=== PATIENT | female | born 2005 | race American Indian/Alaskan Native ===

== ENCOUNTER 2024-12-05 19:06 | Emergency (ER) | payer MEDICAID, SELFPAY ==
[2024-12-05 19:24] VITALS: BP 143/94; PULSE 99; RESP 16; TEMP 36.9; O2SAT 98
--- NOTE | 2024-12-05 19:50 | XR_ITS ---
Examination: Complete OB ultrasound greater than 14 weeks Date and time of exam: December 05, 2024 at 2120 hrs. Indications: Onset vaginal bleeding today Findings: Viable intrauterine single fetus with single amniotic sac presentation breech Cardiac motion 147 BPM Placenta anterior grade 1 Umbilical cord insertion seen Amniotic fluid 6.1 cm spine maternal right Cervix 7.3 cm with fluid in the cervix and early funneling Ovaries obscured by the uterus Subchorionic hemorrhage 22 x 10 x 28 mm. Composite estimated gestational age based on BPD, head circumference, abdominal circumference, femur length is 14 weeks 5 days Estimated weight 9 7 g Survey of intracranial anatomy, spinal anatomy, abdominal anatomy, four-chamber heart performed with no abnormalities identified. Impression: Viable intrauterine gestation breech presentation Recommend short-term follow-up pelvic sonography given the patient's subchorionic hemorrhage.
--- NOTE | 2024-12-05 19:51 | PD.EDRME ---
Rapid Medical Screening Exam RME Arrival date/time: 12/05/24 19:06 19F (1st was a molar s/p D&C) at approximately 14 weeks and with no significant PMH presents to ED with 1 day of sudden vaginal bleeding that has improved. Patient has had normal US of this . Chief Complaint: Vaginal Bleeding Vital signs: Vital Signs Temperature 98.4 F 12/05/24 19:24 Pulse Rate 99 12/05/24 19:24 Respiratory Rate 16 12/05/24 19:24 Blood Pressure 143/94 H 12/05/24 19:24 Pulse Oximetry (%) 98 12/05/24 19:24 Oxygen Delivery Method Room Air 12/05/24 19:24
[2024-12-05 20:33] LABS: Collection Type, Urine Clean Catch
[2024-12-05 20:37] LABS: Basophils % (Auto) 0 % (0-2.5); Eosinophils # (Auto) 0.2 Thou/mm3 (0.0-0.5); Eosinophils % (Auto) 2 % (0-10); Hematocrit 36.7 % (36.0-46.0); Immature Granulocytes % (Auto) 0 % (0-0); Immature Granulocytes Auto 0.02 Thou/mm3 (0.00-0.00); Lymphocytes # (Auto) 2.4 Thou/mm3 (1.0-4.8); Lymphocytes % (Auto) 24 % (10-50); Mean Corpuscular HGB Conc 35.4 g/dl (31.0-37.0); Mean Corpuscular Hemoglobin 31.7 pg (25.0-35.0); Mean Corpuscular Volume 90 fL (80-100); Monocytes # (Auto) 0.7 Thou/mm3 (0.0-0.8); Monocytes % (Auto) 7 % (0-12); Neutrophils # (Auto) 6.8 Thou/mm3 (1.8-7.7); Neutrophils % (Auto) 67 % (37-80); Nucleated Red Blood Cell % 0 /100 WBC (0); Platelet Count 286 Thou/mm3 (140-440); RDW Standard Deviation 42.2 fL (36.4-46.3); White Blood Count 10.2 Thou/mm3 (3.6-11.0)
[2024-12-05 20:44] LABS: Bilirubin,Urine Negative (Negative); Blood,Urine 3+ (Negative); Clarity,Urine Clear (Clear/Hazy); Color,Urine Lt-Yellow (Lt Yel-Yel); Culture Indicated,Urine Not Indicated; Glucose, Urine Negative (Negative); Ketones,Urine Negative (Negative); Leukocyte Esterase,Urine Negative (Negative); Nitrite,Urine Negative (Negative); PH,Urine 6.5 (5.0-7.0); Protein,Urine Trace (Neg - Trace); RBC,Urine 36 /hpf (0-3); Specific Gravity,Urine 1.019 (1.001-1.035); Squamous Epithelial Cell,Urine 1 /hpf (0-5); Urobilinogen,Urine Negative mg/dL (0.0-1.0); WBC,Urine 2 /hpf (0-5)
[2024-12-05 20:50] LABS: Alanine Aminotransferase 12 U/L (10-49); Albumin, Serum 4.6 gm/dL (3.5-5.0); Albumin/Globulin Ratio 1.6 (1.2-2.2); Alkaline Phosphatase 76 U/L (46-116); Anion Gap 10 (7-16); Aspartate Amino Transferase 19 U/L (0-34); BUN/Creatinine Ratio 10 Ratio (12-20); Bilirubin,Total 0.3 mg/dL (0.3-1.2); Blood Urea Nitrogen 7 mg/dL (9-23); Calcium 10.1 mg/dL (8.3-10.6); Calcium (Corrected) 10.1 mg/dL (8.5-10.1); Chloride 103 mMol/L (98-107); Creatinine (Component) 0.7 mg/dL (0.6-1.3); Globulin 2.8 gm/dL (2.3-3.5); Glucose 84 mg/dL (74-106); Osmolality,Calculated 270 (275-295); Potassium 3.6 mMol/L (3.4-5.1); Sodium 137 mMol/L (136-145); Total Protein 7.4 gm/dL (5.7-8.2); eGFR > 60 See Note
[2024-12-05 21:32] LABS: Beta HCG,Quantitative 65063 mIU/mL (<5.0)
--- NOTE | 2024-12-05 22:39 | EDNOTE_ITS ---
<Statement entered by Jessica Barton MD - 12/06/24 18:36> As co-signing physician, I was present and available for consult prn. I concur with the plan and care as documented by the midlevel provider. ED OB Contraction Preg RMI/HPI General Chief complaint: Vaginal Bleeding Stated complaint: VAGINAL BLEEDING Time Seen by Provider: 12/05/24 21:57 Arrival date/time: 12/05/24 19:06 RME / HPI RME / HPI Narrative: 19F (1st was a molar s/p D&C) at approximately 14 weeks and with no significant PMH presents to ED with 1 day of sudden vaginal bleeding that has improved. Patient has had normal US of this . Denies any pelvic pain denies any other complaints no medications taken prior to arrival Related Data Home Medications ?Medication ?Instructions ?Recorded ?Confirmed dimenhydrinate 25 mg chewable 50 mg PO Q8H PRN Nausea 11/14/23 11/14/23 tablet (Dramamine) Previous Rx's ?Medication ?Instructions ?Recorded metoclopramide HCl 10 mg tablet 10 mg PO Q6H PRN nause a and 12/05/24 (Reglan) vomiting #20 tabs Allergies Allergy/AdvReac Type Severity Reaction Status Date / Time adhesive tape Allergy Intermediate Hives Verified 12/05/24 19:09 succinylcholine Allergy Verified 12/05/24 19:09 Review of Systems Review of Systems Narrative Review of Systems: Review of system reviewed and within normal limits except mentioned in HPI ED Exam Narrative Physical exam: VITAL SIGNS: Reviewed. GENERAL APPEARANCE: Alert and interactive, follows commands, no acute distress, HEAD AND FACE: Non-traumatic. ENT: PERRL, pink conjunctivitis, eyelid no trauma, Mucous membrane moist. NECK: Supple, nontender, no nuchal rigidity. CHEST: No tenderness, no crepitus, no paradoxical movement, no retractions. LUNGS: Clear, well ventilated, symmetric, no rales, no wheezing, no ronchi, no stridor, good breath sounds bilaterally. HEART: Regular rate, regular rhythm, no murmur, no gallops. ABDOMEN: Soft, positive bowel sounds, nondistended, no guarding, nontender, no rebound, no masses, RECTAL: Deferred. GENITAL: Deferred. NEUROLOGICAL: Gross motor function intact sensory function intact, Appropriate for age. MUSCULOSKELETAL: low back nontender, full range of motion. EXTREMITIES: Nontender, full range of motion. SKIN: Color pink, dry, no rash, no lacerations, no abrasions, no contusions. LYMPHATICS: Deferred. Course Quality Measures none Orders Category Date Time Status US OB >= 14 weeks Fetus Stat Exams 12/05/24 19:50 Completed ABO/RH Type Stat Lab 12/05/24 20:05 Completed Beta HCG,Quantitative Stat Lab 12/05/24 20:05 Completed CBC Stat Lab 12/05/24 20:05 Completed CMP [Comprehensive Metabolic Panel] Stat Lab 12/05/24 20:05 Completed Urinalysis, C/S if Indicated Stat Lab 12/05/24 20:26 Completed Vital Signs Vital signs: Vital Signs Temperature 98.4 F 12/05/24 19:24 Pulse Rate 99 12/05/24 19:24 Respiratory Rate 16 12/05/24 19:24 Blood Pressure 143/94 H 12/05/24 19:24 Pulse Oximetry (%) 98 12/05/24 19:24 Oxygen Delivery Method Room Air 12/05/24 19:24 Vaginal Bleeding [facility] Narrative [facility] Narrative: 19F (1st was a molar s/p D&C) at approximately 14 weeks and with no significant PMH presents to ED with 1 day of sudden vaginal bleeding that has improved. Patient has had normal US of this . Denies any pelvic pain denies any other complaints no medications taken prior to arrival CBC showed no abnormality noted no anemia noted. Patient's hCG today was noted to be 65,069. Patient is Rh+ urinalysis no UTI ultrasound of showed Viable intrauterine gestation breech presentation Recommend short-term follow-up pelvic sonography given the patient's subchorionic hemorrhage. Patient data External records reviewed:: None Clinical information provided by:: none Social determinants that could affect healthcare access:: none Patient has the following chronic illnesses:: None How is presenting disease/condition affected by chronic disease/condition?: no chronic disease Evaluation data The following diagnostics were reviewed and interpreted by me:: lab results and radiology exam(s) Lab and/or radiology exams considered but not ordered:: None Interpretation Summary: See results in MDM Medications / Prescriptions Medications or Prescriptions considered but not ordered:: None Medication administrations:: None Consultations Consultation(s) initiated? (list below): Yes Consultation #1 (Physician, Specialty, Details): Spoke with Dr Mackey STAFF CERTIFIED NURSE MIDWIFE on-call, discussed the case, and told me that patient is okay to be discharged home chest pelvic rest no sex for 1 week until cleared by STAFF CERTIFIED NURSE MIDWIFE. Diagnosis Vaginal Bleeding Differential Diagnosis: threatened and vaginal bleeding Most likely diagnosis given after review of the tests above:: Vaginal bleeding in early , subchorionic hemorrhage Admission Indicated Admission indicated?: not indicated Explain why admission is indicated or not indicated:: Stable Admission Request Was there a request for admission?: No Disposition Plan Disposition Plan: Discharge Discharge Attestation Discharge Attestation: The patient and all family members were given an opportunity to ask questions and understood the discharge instructions. Discharge instructions specifically effects, indications for sooner follow up or return to the emergency department, and the expected course of current diagnosis. Patient condition: Stable Discharge Plan Plan Patient Disposition: HOME (Self Care) Disposition Comment: Stable Prescriptions/Referrals Prescriptions/Med Rec: New metoclopramide HCl [Reglan] 10 mg tablet 10 mg PO Q6H PRN (Reason: nausea and vomiting) Qty: 20 0RF No Action Dramamine 25 mg Tablet,Chewable 50 mg PO Q8H PRN (Reason: Nausea) Referrals: Sonido Barajas MD [Primary Care Provider] - In 1 week Problem List Clinical Impression: Vaginal bleeding, Subchorionic hemorrhage Patient/Caregiver Discharge Instructions Education Materials: Bleeding During Early Additional Instructions: Thank you for the opportunity for serving you today. You are stable for discharged . You are advised to: Follow-up with OBGyn in 1 to 2 weeks Pelvic rest no sex for 1 week or until cleared by STAFF CERTIFIED NURSE MIDWIFE Return to ED for worsening of symptoms Increase oral fluids Take medication as prescribed Print Language: Citizen Of [place] Stand Alone Forms: Apryl Award Info., Work/School Release, Patient Portal Info Letter SANCHEZ/DERICK Supervising Physician SANCHEZ/DERICK Supervising Physician: MD Cecilia
== END 2024-12-05 23:00 | disposition home or self-care (01) ==
PROVIDERS: Physician Assistant; Emergency Provider Emergency Medicine; PCP Family Medicine
DX: O20.9 Hemorrhage in early pregnancy, unspecified (principal); Z3A.14 14 weeks gestation of pregnancy
CPT/HCPCS: 36415; 76805; 80053; 81001; 84702; 85025; 86900; 86901; 99284

== ENCOUNTER 2024-12-29 09:13 | Outpatient (AMB) | payer BC, SELFPAY ==
[2024-12-29 09:26] VITALS: BP 128/79; PULSE 100; RESP 16; TEMP 36.8; O2SAT 98; BMI 29.6
--- NOTE | 2024-12-29 09:26 | OBCLNT_ITS ---
Vital Signs 12/29/24 09:26 Height 1.7 m Height Method Stated Weight 85.842 kg Weight Measurement Method Standing Scale BMI 29.6 BP 128/79 Blood Pressure Source Automatic Cuff Blood Pressure Location Left Upper Arm Position Sitting Respiration 16 Pulse 100 Pulse Source Monitor Temp 98.2 F Temp Source Oral Pulse Oximetry (%) 98 Oxygen Delivery Method Room Air Allergies/Home Meds Allergies & Medications Allergies adhesive tape Allergy (Intermediate, Verified 12/29/24 09:28) Hives succinylcholine Allergy (Verified 12/29/24 09:28) Medication Reconciliation metoclopramide HCl 10 mg tablet (Reglan) 10 mg PO Q6H PRN nausea and vomiting #20 tabs 12/05/24 [Rx Confirmed 12/29/24] Intake Visit Data Collection New Patient or Established: Established Patient (seen at [facility] within 3 years) Reason for Visit:: New OB Seen by Clinical Staff ONLY (RN/MA): No Supervisor Pumping Required: No Do You Feel Safe at Home: Yes Authorities Contacted: N/A PCP or OBGYN visit in last 3 months: Yes Date of Last PCP or OBGYN visit: 11/04/24 Hx Now: Yes Are you currently on any form of Control: No Last menstrual period: 09/01/24 Pain Present Currently: No Pain Scale Used: Andrade-Brice/Numerical Pain scale:: 0 Smoking Status Smoking Status: Never smoker Questionnaires Covid-19 Vaccine Questionnaire Has patient been vacinated for Covid-19 Have you been vacinated for Covid-19: Yes PHQ-9 PHQ-2 Over the last 2 weeks, how often have you been bothered by any of the following problems? 1. Little interest or pleasure in doing things: not at all 2. Feeling down, depressed, or hopeless: not at all Total score: 0 PHQ-9 3. Trouble falling or staying asleep, or sleeping too much: Not at all 4. Feeling tired or having little energy: Not at all 5. Poor appetite or overeating: Not at all 6. Feeling bad about yourself - or that you are a failure or have let yourself or your family down: Not at all 7. Trouble concentrating on things, such as reading the newspaper or watching television: Not at all 8. Moving or speaking so slowly that other people could have noticed? - Or the opposite - being so fidgety or restless that you have been moving around a lot more than usual: not at all 9. Thoughts that you would be better off or of hurting yourself in some way: Not at all Total score: 0 If you checked off any problems, how difficult have these problems made it for you to do your work, take care of things at home, or get along with other people?: not difficult at all Source: Developed by Drs. Jan Mcdonnell, Joyce Salas, Luis M Beltran and colleagues, with an educational shahrzad from [employer]. Depression screen completed yes Social History Living Situation History Marital Status: Single Lives With: Family Housing: House Tobacco History Smoking Status: Never smoker Alcohol History Alcohol Intake: Never Domestic Abuse History Do You Feel Safe at Home: Yes Past Medical History Past Medical History Have you ever been diagnosed with any of the following: Neurological Problems Seizures: No Cardiology Problems Congestive Heart Failure: No Respiratory Problems Chronic Obstructive Pulmonary Disease (COPD): No Genital/Urinary Problems Renal Disease: No Reproductive Problems Previous Pregnancies: Yes Endocrine Problems Diabetes Mellitus Type 1: No Diabetes Mellitus Type 2: No Other Problems Hospitalization: No Shingles: No Blood Transfusions: No Blood Transfusion Reaction: No Anesthesia Reactions: No Cancer: No History of Present Illness HPI Narrative The patient is presenting for her first visit. She is currently 18 weeks and 1 day with an estimated due date of May 31. The patient reports she has been unable to access care previously, having been turned away from another facility that was shutting down their OB services. She had an emergency room visit on December 05 where an ultrasound showed a gestational age of 14 weeks and 5 days. The patient reports ongoing nausea and vomiting, which has been worsening rather than improving. She has been taking Zofran, but it has not been sufficiently effective in managing her symptoms. The patient also mentions experiencing some vaginal bleeding. She has a history of a previous molar , which has caused her concern about the current . To alleviate her anxiety, she has sought multiple private ultrasounds to monitor the 's progress. OB Initial Visit Menstrual History Menstrual reliability: definite Flow: normal Menstrual regularity: regular Monthly: Yes Age at menarche: 12 On control pills at conception: No Date of positive home test: 09/23/24 Associated symptoms (LMP): Reports nausea OB History : 2 Para: 0 Hx # Pregnancies: 0 Hx Total # of Abortions (Spontaneous & Elective): 1 # of Living Children: 0 Infection History & Risk Evaluation History of STDs: none HIV risk evaluation: low risk Hepatitis B risk evaluation: low risk Patient or partner has history of Genital Herpes: No Varicella/chicken pox status: immunized Genetic Screening & History Genetic Screening/Teratology Counseling - Includes patient, baby's father, or anyone in either family with: 1. Patient's age 35 years or older as of estimated date of delivery: No 2. Thalassemia (Luxembourgish, Lithuanian, Mediterranean, or Background); MCV less than 80: No 3. Neural Tube Defect (Meningomyelocele, Spina Bifida, or Anencephaly): No 4. Congenital Heart Defect: No 5. Down Syndrome: No 6. Shantanu-Sachs (Ashkenazi Methodist, Cajun, Persian [place]): No 7. Jailene Disease (Ashkenazi Methodist): No 8. Familial Dysautonomia (Ashkenazi Methodist): No 9. Sickle Cell Disease or Trait (): No 10. Hemophilia or other blood disorders: No 11. Muscular Dystrophy: No 12. Cystic Fibrosis: No 13. [place]'s Chorea: No 14. Mental Retardation/Autism: Yes 15. Other inherited genetic or chromosomal disorder: Yes 16. Maternal Metabolic Disorder (EG,TYPE 1 Diabetes, PKU): No 17. Patient or baby's father had a child with defects not listed above: No 18. Recurrent loss or a stillbirth: No 19. Medications (including supplements, vitamins, herbs or otc drugs)/illicit/recreational drugs/alcohol since last menstrual period: Yes 20. Any other: No Infection History 1. Live with someone with TB or exposed to TB: No 2. Rash or viral illness since last menstrual period: No 3. Hepatitis B,C: No Other (see comments) Source: [employer] [place] [employer] Review of Systems Gastrointestinal Gastrointestinal: Reports nausea Assessment & Plan Diagnosis / Problem List (1) Supervision of high risk , unspecified, second trimester: Status: Acute Plan: 18 weeks 1 day intrauterine with estimated due date of May 31, 2025. Patient presents for initial visit with no prior care or blood tests. Recent ER visit on December 05 with ultrasound showing 14 weeks 5 days gestation. Multiple private ultrasounds have been performed, confirming gender. Current ultrasound shows normal anatomy with heart rate of 141 bpm. Placenta is anteriorly located. No visible clots or active hemorrhage noted. Patient reports ongoing vaginal bleeding, likely residual from a resolving subchorionic hematoma. Nausea and vomiting persist, worsening despite Zofran use. - Complete labs including genetic testing - Schedule anatomy scan ([facility] ultrasound) between 20-22 weeks in [place] - Prescribe stronger antiemetic medication - Follow-up appointment in 2 weeks to review lab results - Continue monitoring vaginal bleeding, which is expected to resolve Office Procedures OB Clinic LOC & Office Proc's Nursing/Assessment Patient Status: Established Patient OB Clinic Nursing Assessment: BP Monitoring, Medication Reconciliation, Update PMH in EMR and Vital Signs OB Clinic Coordination of Care: Consent,records obtained, informed consent, Education Simp Pt/Fam, Lab and Imaging orders and Staff clarify orders Established Patient Charge Established Patient Point Assignment: 90 Established Patient Point Charge: EP Level 3 (80-115)
== END 2024-12-29 09:41 | disposition home or self-care (01) ==
LOC: HODSOBC 09:13
PROVIDERS: PCP Family Medicine; Referring Provider Family Medicine; Supervising Provider Obstetrics & Gynecology; Visit Provider Obstetrics & Gynecology
DX: O26.892 Other specified pregnancy related conditions, second trimester (principal); Z3A.18 18 weeks gestation of pregnancy; O09.92 Supervision of high risk pregnancy, unspecified, second trimester
CPT/HCPCS: 99213; G0463

== ENCOUNTER 2025-01-13 09:47 | Outpatient (AMB) | payer BC, SELFPAY ==
[2025-01-13 09:59] VITALS: BP 110/76; PULSE 95; RESP 18; TEMP 36.4; O2SAT 97; BMI 30.2
--- NOTE | 2025-01-13 09:59 | AMB.OBVISIT ---
Vital Signs 01/13/25 09:59 Height 1.7 m Height Method Stated Weight 87.203 kg Weight Measurement Method Standing Scale BMI 30.2 BP 110/76 Blood Pressure Source Automatic Cuff Blood Pressure Location Left Upper Arm Position Sitting Respiration 18 Pulse 95 Pulse Source Monitor Temp 97.6 F Temp Source Oral Pulse Oximetry (%) 97 Oxygen Delivery Method Room Air Allergies/Home Meds Allergies & Medications Allergies adhesive tape Allergy (Intermediate, Verified 02/10/25 10:21) Hives succinylcholine Allergy (Verified 02/10/25 10:21) Medication Reconciliation doxylamine 10 mg-pyridoxine (vit B6) 10 mg tablet,delayed release (Diclegis) 1 tab PO BID 30 days #60 tabs 02/10/25 [Rx] ondansetron 4 mg disintegrating tablet 4 mg PO Q6H PRN nausea and vomiting 30 days #60 tabs 02/10/25 [Rx] Intake Visit Data Collection New Patient or Established: Established Patient (seen at [facility] within 3 years) Reason for Visit:: CARE Seen by Clinical Staff ONLY (RN/MA): No Do You Feel Safe at Home: Yes Authorities Contacted: N/A PCP or OBGYN visit in last 3 months: Yes Date of Last PCP or OBGYN visit: 01/29/25 Hx Now: Yes Are you currently on any form of Control: No Last menstrual period: 08/22/24 Pain Present Currently: No Pain Scale Used: Andrade-Brice/Numerical Pain scale:: 0 Smoking Status Smoking Status: Never smoker Questionnaires Covid-19 Vaccine Questionnaire Has patient been vacinated for Covid-19 Have you been vacinated for Covid-19: No PHQ-9 PHQ-2 Over the last 2 weeks, how often have you been bothered by any of the following problems? 1. Little interest or pleasure in doing things: not at all 2. Feeling down, depressed, or hopeless: not at all Total score: 0 PHQ-9 3. Trouble falling or staying asleep, or sleeping too much: Not at all 4. Feeling tired or having little energy: Not at all 5. Poor appetite or overeating: Not at all 6. Feeling bad about yourself - or that you are a failure or have let yourself or your family down: Not at all 7. Trouble concentrating on things, such as reading the newspaper or watching television: Not at all 8. Moving or speaking so slowly that other people could have noticed? - Or the opposite - being so fidgety or restless that you have been moving around a lot more than usual: not at all 9. Thoughts that you would be better off or of hurting yourself in some way: Not at all Total score: 0 Source: Developed by Drs. Jan Mcdonnell, Joyce Salas, Luis M Beltran and colleagues, with an educational shahrzad from [email or web address]. Depression screen completed yes Social History Living Situation History Lives With: Family Housing: House Tobacco History Smoking Status: Never smoker Second Hand Smoke Exposure: No Alcohol History Alcohol Intake: Never Domestic Abuse History Do You Feel Safe at Home: Yes Past Medical History Past Medical History Have you ever been diagnosed with any of the following: Neurological Problems Cerebrovascular Accident (CVA): No Transient Ischemic Attacks (TIA): No Dementia: No Alzheimer's Disease: No Parkinson's Disease: No Brain Tumor: No Meningitis: No Seizures: No Cardiology Problems Myocardial Infarction: No Cardiac Arrhythmia: No Atrial Fibrillation: No Angina: No Heart Murmur: No Coronary Artery Disease: No Atherosclerotic Heart Disease: No Peripheral Vascular Disease: No Hypercholesterolemia: No Aneurysm: No Congestive Heart Failure: No Respiratory Problems Chronic Obstructive Pulmonary Disease (COPD): No Asthma: No Bronchitis: No Emphysema: No Pneumonia: No Pulmonary Fibrosis: No Tuberculosis: No Pulmonary Embolism: No Pulmonary Edema: No Hx Cough: No Cough: No Wheezing: No Chest Deformities: No Smoking: No Smoking Cessation Counseling: No Smoking Exposure: No Tobacco Use: No Clubbing: No Stomache/Intestinal Problems Liver Cancer: No Hepatitis: No Cirrhosis: No Pancreatic Cancer: No Pancreatitis: No Celiac Disease: No Gall Bladder Disease: No Gastrointestinal Bleed: No Esophageal Varices: No Perez's Esophagus: No Colitis: No Genital/Urinary Problems Chronic Kidney Disease: No Renal Disease: No Kidney Stones: No Dialysis: No Reproductive Problems Breast Cancer: No Endometriosis: No Fibroids: No Genital Herpes: No Gonorrhea: No Pelvic Inflammatory Disease: No Polycystic Ovarian Syndrome: No Previous Pregnancies: Yes Syphilis: No Musculoskeletal Problems Muscular Dystrophy: No Myasthenia Gravis: No Marfan's Syndrome: No Bone Cancer: No Arthritis: No Rheumatoid Arthritis: No Osteoporosis: No Degenerative Disk Disease: No Gout: No Scoliosis: No Carpal Tunnel Syndrome: No Fibromyalgia: No Fractures: No Degenerative Joint Disease: No Osteomyelitis: No Poliovirus: No Head,Eye,Nose,Throat Problems Cataracts: No Glaucoma: No Blind: No Retinal Detachment: No Macular Degeneration: No Chronic Ear Infections: No Deafness: No Eye Prosthesis: No Endocrine Problems Diabetes Mellitus Type 1: No Diabetes Mellitus Type 2: No [place]umberland's Syndrome: No Hudson's Disease: No Hyperthyroidism: No Hypothyroidism: No Thyroid Cancer: No Parathyroid Disease: No Pituitary Disease: No Systemic Lupus Erythematosus: No Syndrome of Inappropriate Antidiuretic Hormone: No Adrenal Disease: No Graves' Disease: No Blood Problems Anemia: No Leukemia: No Hemophilia: No Thalassemia: No Sickle Cell Disease: No Clotting Problems: No Psychologic Problems Schizophrenia: No Recreational Drug Use: No Bipolar Disorder: No Depression: No Anxiety: No Behavior Problems: No Self-Mutilation: No Attention Deficit Disorder: No Attention Deficit Hyperactivity Disorder: No Depression: No Post Traumatic Stress Disorder: No Eating Disorder: No Other Problems Hospitalization: No Autoimmune Disease: No Down Syndrome: No Autism: No Developmental Delay: No Cosmetic Surgery: No Shingles: No Blood Transfusions: No Blood Transfusion Reaction: No Anesthesia Reactions: No Cancer: No Cervical Cancer: No Lung Cancer: No Ovarian Cancer: No Surgical History Angioplasty: No Appendectomy: No Bariatric Surgery: No Breast Surgery: No Cancer Surgery: No Carotid Endarterectomy: No Cholecystectomy: No Colectomy: No Colostomy: No Coronary Artery Bypass Graft: No Valve Replacement: No Herniorrhaphy: No History of Present Illness HPI Narrative Patient presents for care in the first trimester. She is currently 22 weeks and 2 days estimated gestation, with an estimated due date of 05-31-2025. The patient was seen 2 weeks ago with a history of threatened miscarriage. She reports no more bleeding since then and no other issues. The patient describes feeling pressure, particularly on one side, which is more noticeable at night. She denies feeling movements, only pressure sensations. The patient reports experiencing nausea and vomiting, primarily occurring at night. She states that most of the time, everything she eats is coming up, though she is able to keep certain foods down. Tuna is noted as one of the foods she can tolerate. No CTX/LOF/VB, reports good FM+ Review of Systems Review of Systems Systems Reviewed: All systems reviewed, normal except as documented Visit ALEJANDRINA Calculator Estimated Delivery Date Method Current WG Current Estimate 05/31/25 Ultrasound #1 24w 5d Initial Weight: Not Recorded Date <del>?</del> EGA Weight Edema CTX Effacement BP Fundal ht Pres Dilation Effacement Station Visit Note Alb Glu FHR Mov 02/10/25 <del>?</del> 24w 2d 89.584 kg 113/75 No CTX/LOF/VB. Reports good FM. No SUN/VS, Epig/RUQ pain. Primary concern: severe left-sided sciatica, worsened by prolonged standing. No relief with stretching or heat. Has not yet felt movement. FHR: 146?147 bpm. Assessment & Plan: 24w with left-sided sciatica. heart rate reassuring. Resubmit referral for ultrasound at [facility] 24w glucose test for GDM screening Offer workplace accommodation note: 10-min break every 2 hrs Option to call out during severe episodes Follow up in 4 weeks Reviewed labor signs and care counseling Exam General Limitations: no limitations General Appearance: alert, in no apparent distress, comfortable, cooperative, healthy appearing, well developed and well groomed Head Head exam: atraumatic, normocephalic and normal inspection Neck Neck exam: Present normal inspection, full ROM and trachea midline Chest Chest inspection: Present normal inspection and symmetric chest wall rise Abdominal Abdominal exam: Present soft and normal bowel sounds Extremities Extremities exam: Present normal inspection and full ROM Back Back exam: Present normal inspection and full ROM Psych Psychiatric exam: Present normal affect and normal mood Skin Skin exam: Present warm, dry, intact and normal color Assessment & Plan Diagnosis / Problem List (1) Hyperemesis affecting , antepartum: Status: Acute Plan: Patient reports frequent vomiting, primarily at night. She is able to keep some foods down, particularly tuna, but reports most foods coming up. This suggests ongoing hyperemesis gravidarum. - Advised that canned tuna labeled as tested for mercury or mercury-free is safe for consumption during - Consider anti-emetic medication (2) Supervision of high risk , unspecified, second trimester: Status: Acute Plan: , 22 weeks 2 days gestation Patient is at 22 weeks and 2 days estimated gestation with an ALEJANDRINA of 05-31-2025. Recent history of threatened miscarriage 2 weeks ago. labs from 01-01-2025 show: hepatitis B-negative, hepatitis C-negative, RPR non-reactive, rubella immune, blood group O positive with negative antibody screen, HIV negative, gonorrhea and chlamydia negative. NIPT is negative. heart rate 138 bpm, which is within normal range. Patient reports feeling pressure, particularly at night, likely due to round ligament stretch. No current bleeding or other issues reported. - Continue care - Await call for 20-24 week ultrasound referral - Advised to avoid sleeping flat on back; recommended rotating shoulder, using pillow, or sleeping on side - Follow-up appointment scheduled in 4 weeks Plan Educated the patient on labor signs, including regular contractions, lower back pain, and changes in vaginal discharge. Advised avoiding heavy lifting and getting adequate rest. Instructed to contact the office immediately if any signs occur. Discussed the importance of a balanced diet rich in folic acid, iron, and calcium, and provided a list of recommended and to-avoid foods. Emphasized avoiding high-sugar foods to reduce gestational diabetes risk. Encouraged hydration and frequent, small meals for energy. Office Procedures OB Clinic LOC & Office Proc's Nursing/Assessment Patient Status: Established Patient OB Clinic Nursing Assessment: Medication Reconciliation, Update PMH in EMR and Vital Signs OB Clinic Coordination of Care: Complex Care and Chronic Disease 1-5, Consent,records obtained, informed consent, Education Simp Pt/Fam, Results/Orders obtained and Staff clarify orders Special Needs: Heart tones Established Patient Charge Established Patient Point Assignment: 120 Established Patient Point Charge: EP Level 4 (120-155) Bedside Ultrasounds US Transabdominal <14 weeks at bedside: Yes
== END 2025-01-13 10:14 | disposition home or self-care (01) ==
LOC: HODSOBC 09:47
PROVIDERS: PCP Obstetrics & Gynecology; Referring Provider Obstetrics & Gynecology; Supervising Provider Obstetrics & Gynecology; Visit Provider Obstetrics & Gynecology
DX: O09.892 Supervision of other high risk pregnancies, second trimester (principal); O21.0 Mild hyperemesis gravidarum; Z3A.22 22 weeks gestation of pregnancy; Z88.8 Allergy status to other drugs, medicaments and biological substances; Z91.048 Other nonmedicinal substance allergy status
CPT/HCPCS: 76801; 99214; G0463

== ENCOUNTER 2025-02-10 10:03 | Outpatient (AMB) | payer BC, MEDICAID, SELFPAY ==
--- NOTE | 2025-02-10 10:19 | AMB.OBVISIT ---
Vital Signs 02/10/25 10:20 Height 1.7 m Height Method Stated Weight 89.584 kg Weight Measurement Method Standing Scale BMI 30.9 BP 113/75 Blood Pressure Source Automatic Cuff Blood Pressure Location Left Upper Arm Position Sitting Respiration 16 Pulse 80 Pulse Source Monitor Temp 97.5 F Temp Source Oral Pulse Oximetry (%) 98 Oxygen Delivery Method Room Air Allergies/Home Meds Allergies & Medications Allergies adhesive tape Allergy (Intermediate, Verified 02/10/25 10:21) Hives succinylcholine Allergy (Verified 02/10/25 10:21) Medication Reconciliation doxylamine 10 mg-pyridoxine (vit B6) 10 mg tablet,delayed release (Diclegis) 1 tab PO BID 30 days #60 tabs 02/10/25 [Rx] ondansetron 4 mg disintegrating tablet 4 mg PO Q6H PRN nausea and vomiting 30 days #60 tabs 02/10/25 [Rx] Intake Visit Data Collection New Patient or Established: Established Patient (seen at [facility] within 3 years) Reason for Visit:: CARE Seen by Clinical Staff ONLY (RN/MA): No Head Of Digital Required: No Do You Feel Safe at Home: Yes Authorities Contacted: N/A PCP or OBGYN visit in last 3 months: Yes Hx Now: Yes Are you currently on any form of Control: No Pain Present Currently: Yes Pain Location: Back (LOWER BACK) Pain Scale Used: Andrade-Brice/Numerical Pain scale:: 4 Smoking Status Smoking Status: Never smoker Questionnaires Covid-19 Vaccine Questionnaire Has patient been vacinated for Covid-19 Have you been vacinated for Covid-19: Yes PHQ-9 PHQ-2 Over the last 2 weeks, how often have you been bothered by any of the following problems? 1. Little interest or pleasure in doing things: not at all 2. Feeling down, depressed, or hopeless: not at all Total score: 0 PHQ-9 3. Trouble falling or staying asleep, or sleeping too much: Not at all 4. Feeling tired or having little energy: Not at all 5. Poor appetite or overeating: Not at all 6. Feeling bad about yourself - or that you are a failure or have let yourself or your family down: Not at all 7. Trouble concentrating on things, such as reading the newspaper or watching television: Not at all 8. Moving or speaking so slowly that other people could have noticed? - Or the opposite - being so fidgety or restless that you have been moving around a lot more than usual: not at all 9. Thoughts that you would be better off or of hurting yourself in some way: Not at all Total score: 0 Source: Developed by Drs. Jan Mcdonnell, Joyce Salas, Luis M Beltran and colleagues, with an educational shahrzad from [employer]. Depression screen completed yes Social History Living Situation History Lives With: Family Housing: House Tobacco History Smoking Status: Never smoker Second Hand Smoke Exposure: No Alcohol History Alcohol Intake: Never Domestic Abuse History Do You Feel Safe at Home: Yes Past Medical History Past Medical History Have you ever been diagnosed with any of the following: Neurological Problems Cerebrovascular Accident (CVA): No Transient Ischemic Attacks (TIA): No Dementia: No Alzheimer's Disease: No Parkinson's Disease: No Brain Tumor: No Meningitis: No Seizures: No Cardiology Problems Myocardial Infarction: No Cardiac Arrhythmia: No Atrial Fibrillation: No Angina: No Heart Murmur: No Coronary Artery Disease: No Atherosclerotic Heart Disease: No Peripheral Vascular Disease: No Hypercholesterolemia: No Aneurysm: No Congestive Heart Failure: No Respiratory Problems Chronic Obstructive Pulmonary Disease (COPD): No Asthma: No Bronchitis: No Emphysema: No Pneumonia: No Pulmonary Fibrosis: No Tuberculosis: No Pulmonary Embolism: No Pulmonary Edema: No Hx Cough: No Cough: No Wheezing: No Chest Deformities: No Smoking: No Smoking Cessation Counseling: No Smoking Exposure: No Tobacco Use: No Clubbing: No Stomache/Intestinal Problems Liver Cancer: No Hepatitis: No Cirrhosis: No Pancreatic Cancer: No Pancreatitis: No Celiac Disease: No Gall Bladder Disease: No Gastrointestinal Bleed: No Esophageal Varices: No Perez's Esophagus: No Colitis: No Genital/Urinary Problems Renal Disease: No Kidney Stones: No Dialysis: No Reproductive Problems Breast Cancer: No Endometriosis: No Fibroids: No Genital Herpes: No Gonorrhea: No Pelvic Inflammatory Disease: No Polycystic Ovarian Syndrome: No Previous Pregnancies: Yes Syphilis: No Musculoskeletal Problems Muscular Dystrophy: No Myasthenia Gravis: No Marfan's Syndrome: No Bone Cancer: No Arthritis: No Rheumatoid Arthritis: No Osteoporosis: No Degenerative Disk Disease: No Gout: No Scoliosis: No Carpal Tunnel Syndrome: No Fibromyalgia: No Fractures: No Degenerative Joint Disease: No Osteomyelitis: No Poliovirus: No Head,Eye,Nose,Throat Problems Cataracts: No Glaucoma: No Blind: No Retinal Detachment: No Macular Degeneration: No Chronic Ear Infections: No Deafness: No Eye Prosthesis: No Endocrine Problems Diabetes Mellitus Type 1: No Diabetes Mellitus Type 2: No Debra's Syndrome: No Calos's Disease: No Hyperthyroidism: No Hypothyroidism: No Thyroid Cancer: No Parathyroid Disease: No Pituitary Disease: No Systemic Lupus Erythematosus: No Syndrome of Inappropriate Antidiuretic Hormone: No Adrenal Disease: No Graves' Disease: No Blood Problems Anemia: No Leukemia: No Hemophilia: No Thalassemia: No Sickle Cell Disease: No Clotting Problems: No Psychologic Problems Schizophrenia: No Recreational Drug Use: No Bipolar Disorder: No Depression: No Anxiety: No Behavior Problems: No Self-Mutilation: No Attention Deficit Disorder: No Attention Deficit Hyperactivity Disorder: No Depression: No Post Traumatic Stress Disorder: No Eating Disorder: No Other Problems Hospitalization: No Down Syndrome: No Autism: No Developmental Delay: No Cosmetic Surgery: No Shingles: No Blood Transfusions: No Blood Transfusion Reaction: No Anesthesia Reactions: No Cancer: No Cervical Cancer: No Lung Cancer: No Ovarian Cancer: No Surgical History Angioplasty: No Appendectomy: No Bariatric Surgery: No Breast Surgery: No Cancer Surgery: No Carotid Endarterectomy: No Cholecystectomy: No Colectomy: No Colostomy: No Coronary Artery Bypass Graft: No Valve Replacement: No Herniorrhaphy: No History of Present Illness HPI Narrative History of Present Illness - Sonja Baker is a patient at approximately 24 weeks gestation presenting for a routine visit. - She reports experiencing severe left-sided sciatica pain. - Pain is exacerbated by prolonged standing, particularly at work where she stands all day. - She has attempted to alleviate the pain with stretching and heat application, but these measures have been ineffective. - Patient mentions not feeling movement yet. - No other -related complaints or concerns reported. No contractions/ LOF/VB, reports good FM No SUN/VC/RUQ/Epig pain Visit OB Visit Log OB Flowsheet Initial Weight: Not Recorded Date <del>?</del> EGA Weight Edema CTX Effacement BP Fundal ht Pres Dilation Effacement Station Visit Note Alb Glu FHR Mov 02/10/25 <del>?</del> 24w 2d 89.584 kg 113/75 No CTX/LOF/VB. Reports good FM. No SUN/VS, Epig/RUQ pain. Primary concern: severe left-sided sciatica, worsened by prolonged standing. No relief with stretching or heat. Has not yet felt movement. FHR: 146?147 bpm. Assessment & Plan: 24w with left-sided sciatica. heart rate reassuring. Resubmit referral for ultrasound at [facility] 24w glucose test for GDM screening Offer workplace accommodation note: 10-min break every 2 hrs Option to call out during severe episodes Follow up in 4 weeks Reviewed labor signs and care counseling ALEJANDRINA Calculator Estimated Delivery Date Method Current WG Current Estimate 05/31/25 Ultrasound #1 24w 4d Exam General General Appearance: alert, in no apparent distress and healthy appearing Head Head exam: atraumatic Neck Neck exam: Present normal inspection and trachea midline Chest Chest inspection: Present normal inspection and symmetric chest wall rise External exam: Present normal external exam; Absent tenderness Neuro Neurological exam: Present oriented X3 Psych Psychiatric exam: Present normal affect and normal mood Assessment & Plan Diagnosis / Problem List (1) Supervision of high risk , unspecified, second trimester: Status: Acute (2) Hyperemesis affecting , antepartum: Status: Acute Plan Problem List - - Sciatica Assessment - at 24 weeks gestation - Sciatica on the left side, exacerbated by prolonged standing - heart rate 146-147 bpm - Patient reports not feeling movement yet Plan - Check on and resubmit referral for ultrasound at [facility] - Provide lab order for glucose test (diabetes screening) at 24 weeks gestation - Offer to complete workplace accommodations form for sciatica, including: - 10-minute break every 2 hours to relieve standing - Option to call out on days with severe pain - Follow up appointment in 4 weeks Educated the patient on labor signs, including regular contractions, lower back pain, and changes in vaginal discharge. Advised avoiding heavy lifting and getting adequate rest. Instructed to contact the office immediately if any signs occur. Discussed the importance of a balanced diet rich in folic acid, iron, and calcium, and provided a list of recommended and to-avoid foods. Emphasized avoiding high-sugar foods to reduce gestational diabetes risk. Encouraged hydration and frequent, small meals for energy.. Office Procedures OB Clinic LOC & Office Proc's Nursing/Assessment Patient Status: Established Patient OB Clinic Nursing Assessment: Medication Reconciliation, Update PMH in EMR and Vital Signs OB Clinic Coordination of Care: Complex Care and Chronic Disease 1-5, Consent,records obtained, informed consent, Education Simp Pt/Fam, Results/Orders obtained and Staff clarify orders Special Needs: Heart tones Established Patient Charge Established Patient Point Assignment: 120 Established Patient Point Charge: EP Level 4 (120-155)
[2025-02-10 10:20] VITALS: BP 113/75; PULSE 80; RESP 16; TEMP 36.4; O2SAT 98; BMI 30.9
== END 2025-02-10 10:40 | disposition home or self-care (01) ==
LOC: HODSOBC 10:03
PROVIDERS: Supervising Provider Obstetrics & Gynecology; Visit Provider Obstetrics & Gynecology
DX: O09.892 Supervision of other high risk pregnancies, second trimester (principal); Z3A.24 24 weeks gestation of pregnancy; O21.0 Mild hyperemesis gravidarum; O99.891 Other specified diseases and conditions complicating pregnancy; M54.32 Sciatica, left side
CPT/HCPCS: 99214; G0463

== ENCOUNTER 2025-03-03 09:24 | Outpatient (AMB) | payer BC, MEDICAID, SELFPAY ==
[2025-03-03 09:34] VITALS: BP 125/79; PULSE 94; RESP 18; TEMP 36.2; O2SAT 98; BMI 31.4
--- NOTE | 2025-03-03 09:34 | AMB.OBVISIT ---
Vital Signs 03/03/25 09:34 Height 1.7 m Height Method Stated Weight 90.945 kg Weight Measurement Method Standing Scale BMI 31.4 BP 125/79 Blood Pressure Source Automatic Cuff Blood Pressure Location Left Upper Arm Position Sitting Respiration 18 Pulse 94 Pulse Source Monitor Temp 97.2 F Temp Source Oral Pulse Oximetry (%) 98 Oxygen Delivery Method Room Air Allergies/Home Meds Allergies & Medications Allergies adhesive tape Allergy (Intermediate, Verified 03/03/25 09:36) Hives succinylcholine Allergy (Verified 03/03/25 09:36) Intake Visit Data Collection New Patient or Established: Established Patient (seen at [facility] within 3 years) Reason for Visit:: - Routine visit at 27 weeks and 2 days gestation - Intermittent left-sided sciatica - Occasional acid reflux, worse at night Seen by Clinical Staff ONLY (RN/MA): No Optical Glass Inspector Required: No Do You Feel Safe at Home: Yes Authorities Contacted: N/A PCP or OBGYN visit in last 3 months: Yes Date of Last PCP or OBGYN visit: 02/10/25 Hx Now: No Are you currently on any form of Control: Yes Pain Present Currently: No Pain Scale Used: Andrade-Brice/Numerical Pain scale:: 0 Smoking Status Smoking Status: Never smoker Questionnaires Covid-19 Vaccine Questionnaire Has patient been vacinated for Covid-19 Have you been vacinated for Covid-19: Yes PHQ-9 PHQ-2 Over the last 2 weeks, how often have you been bothered by any of the following problems? 1. Little interest or pleasure in doing things: not at all 2. Feeling down, depressed, or hopeless: not at all Total score: 0 PHQ-9 3. Trouble falling or staying asleep, or sleeping too much: Not at all 4. Feeling tired or having little energy: Not at all 5. Poor appetite or overeating: Not at all 6. Feeling bad about yourself - or that you are a failure or have let yourself or your family down: Not at all 7. Trouble concentrating on things, such as reading the newspaper or watching television: Not at all 8. Moving or speaking so slowly that other people could have noticed? - Or the opposite - being so fidgety or restless that you have been moving around a lot more than usual: not at all 9. Thoughts that you would be better off or of hurting yourself in some way: Not at all Total score: 0 If you checked off any problems, how difficult have these problems made it for you to do your work, take care of things at home, or get along with other people?: not difficult at all Source: Developed by Drs. Jan Mcdonnell, Joyce Salas, Luis M Beltran and colleagues, with an educational shahrzad from [employer]. 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 - She reports ongoing left-sided sciatica: - Pain comes and goes - Likely to persist for the duration of - Exacerbated by prolonged standing at work - movement: - Patient notes increased activity at night - Denies contractions or cramping - Reports acid reflux: - Occurs mostly at night - Using dissolving medication for relief - No other reported -related concerns or symptoms No contractions/ LOF/VB, reports good FM No SUN/VC/RUQ/Epig pain Estimated Due Date Summary LMP Unknown ALEJANDRINA by LMP ? Ultrasound #1 12/05/2024 [place] [facility] 14w5d ALEJANDRINA by US #1:06/03/2025 Final ALEJANDRINA 06/03/2025 Basis for Final ALEJANDRINA 14w5d Sono Previous Section? No Care OB Visit Log OB Flowsheet Initial Weight: Not Recorded Date <del>?</del> EGA Weight BP Alb Glu CTX Pres Fundal ht FHR Mov Dilation Station Effacement Hx Notes Visit Note 02/10/25 <del>?</del> 24w 2d 89.584 kg 113/75 No CTX/LOF/VB. Reports good FM. No SUN/VS, Epig/RUQ pain. Primary concern: severe left-sided sciatica, worsened by prolonged standing. No relief with stretching or heat. Has not yet felt movement. FHR: 146?147 bpm. Assessment & Plan: 24w with left-sided sciatica. heart rate reassuring. Resubmit referral for ultrasound at [facility] 24w glucose test for GDM screening Offer workplace accommodation note: 10-min break every 2 hrs Option to call out during severe episodes Follow up in 4 weeks Reviewed labor signs and care counseling 03/03/25 <del>?</del> 27w 2d 90.945 kg 125/79 28 active at 27 weeks and 2 days gestation, presents for routine care. Reports ongoing left-sided sciatica, previously addressed with work accommodation, and nocturnal acid reflux affecting sleep. Notes good FM+, especially at night. Denies contractions or cramping. Glucose tolerance test and A1c both normal. FHT 158 bpm. Plan: Routine follow-up in 2 weeks Transition to weekly visits after 34 weeks Tdap planned for 32 weeks Growth US scheduled for 03/31 at [facility] Continue work accommodations for sciatica Recommend omeprazole for GERD, avoid food 2 hrs before bed Stop ondansetron for reflux, reassess symptoms next visit ALEJANDRINA Calculator Estimated Delivery Date Method Current WG Current Estimate 05/31/25 Ultrasound #1 27w 5d Notes Visit Date: 03/03/25 Last Updated by: Cm Dominguez MD Test Exam General General Appearance: alert, in no apparent distress and healthy appearing Head Head exam: atraumatic Neck Neck exam: Present normal inspection and trachea midline Chest Chest inspection: Present normal inspection and symmetric chest wall rise External exam: Present normal external exam; Absent tenderness Neuro Neurological exam: Present oriented X3 Psych Psychiatric exam: Present normal affect and normal mood Office Procedures OB Clinic LOC & Office Proc's Nursing/Assessment Patient Status: Established Patient OB Clinic Nursing Assessment: Medication Reconciliation, Update PMH in EMR and Vital Signs OB Clinic Coordination of Care: Education Complex Pt/Fam, Consent,records obtained, informed consent, Lab and Imaging orders and Staff clarify orders Special Needs: Heart tones Established Patient Charge Established Patient Point Assignment: 110 Established Patient Point Charge: EP Level 3 (80-115) Assessment & Plan Diagnosis / Problem List (1) Hyperemesis affecting , antepartum: Status: Acute (2) Supervision of high risk , unspecified, second trimester: Status: Acute Plan Problem List - , 27 weeks and 2 days - Sciatica, left-sided - Gastroesophageal reflux disease Assessment - 0 para 0010 at 27 weeks and 2 days gestation - Negative 2-hour glucose tolerance test (fasting 76, 2-hour 97, HbA1c 5.3) - Persistent left-sided sciatica - movement reported, more active at night - heart rate 158 bpm - Gastroesophageal reflux, worse at night - Nausea Plan - Follow up in 2 weeks - Schedule next appointment at 34 weeks for weekly visits - Tdap vaccine to be administered at 32-week appointment - Continue using Zofran (ondansetron) as needed for nausea - Consider omeprazole for acid reflux - Advised to avoid eating within 2 hours of bedtime for reflux management - Growth ultrasound scheduled for March 31 (approximately 32 weeks gestation) Educated the patient on labor signs, including regular contractions, lower back pain, and changes in vaginal discharge. Advised avoiding heavy lifting and getting adequate rest. Instructed to contact the office immediately if any signs occur. Discussed the importance of a balanced diet rich in folic acid, iron, and calcium, and provided a list of recommended and to-avoid foods. Emphasized avoiding high-sugar foods to reduce gestational diabetes risk. Encouraged hydration and frequent, small meals for energy..
== END 2025-03-03 09:46 | disposition home or self-care (01) ==
LOC: HODSOBC 09:24
PROVIDERS: PCP Obstetrics & Gynecology; Referring Provider Obstetrics & Gynecology; Supervising Provider Obstetrics & Gynecology; Visit Provider Obstetrics & Gynecology
DX: O09.892 Supervision of other high risk pregnancies, second trimester (principal); Z3A.27 27 weeks gestation of pregnancy; O21.0 Mild hyperemesis gravidarum; K21.9 Gastro-esophageal reflux disease without esophagitis; O99.612 Diseases of the digestive system complicating pregnancy, second trimester; O99.352 Diseases of the nervous system complicating pregnancy, second trimester; M54.32 Sciatica, left side
CPT/HCPCS: 99213; G0463

== ENCOUNTER 2025-03-17 08:32 | Outpatient (AMB) | payer MEDICAID, SELFPAY ==
[2025-03-17 08:37] VITALS: BP 109/79; PULSE 86; RESP 17; TEMP 36.6; O2SAT 98; BMI 33.0
--- NOTE | 2025-03-17 08:37 | OBCLNT_ITS ---
Vital Signs 03/17/25 08:37 Height 1.68 m Height Method Stated Weight 92.703 kg Weight Measurement Method Standing Scale BMI 33.0 BP 109/79 Blood Pressure Source Automatic Cuff Blood Pressure Location Right Upper Arm Position Sitting Respiration 17 Pulse 86 Pulse Source Monitor Temp 97.9 F Temp Source Temporal Artery Scan Pulse Oximetry (%) 98 Oxygen Delivery Method Room Air Allergies/Home Meds Allergies & Medications Allergies adhesive tape Allergy (Intermediate, Verified 03/31/25 14:44) Hives succinylcholine Allergy (Verified 03/31/25 14:44) Medication Reconciliation doxylamine 10 mg-pyridoxine (vit B6) 10 mg tablet,delayed release (Diclegis) 1 tab PO BID 30 days #60 tabs 02/10/25 [Rx Confirmed 03/31/25] omeprazole 40 mg capsule,delayed release 40 mg PO QDAY 30 days #30 caps 03/03/25 [Rx Confirmed 03/31/25] omeprazole 40 mg capsule,delayed release 40 mg PO QDAY 30 days #30 caps 03/23/25 [Rx Confirmed 03/31/25] promethazine 25 mg tablet 25 mg PO Q6H PRN nausea and vomiting 30 days #30 tabs 03/23/25 [Rx Confirmed 03/31/25] Intake Visit Data Collection New Patient or Established: Established Patient (seen at [facility] within 3 years) Reason for Visit:: [facility] 2D Seen by Clinical Staff ONLY (RN/MA): No Do You Feel Safe at Home: Yes Authorities Contacted: N/A PCP or OBGYN visit in last 3 months: Yes Date of Last PCP or OBGYN visit: 03/03/25 Hx Now: Yes Are you currently on any form of Control: No Pain Present Currently: No Pain Scale Used: Andrade-Brice/Numerical Pain scale:: 0 Smoking Status Smoking Status: Never smoker Questionnaires Covid-19 Vaccine Questionnaire Has patient been vacinated for Covid-19 Have you been vacinated for Covid-19: Yes PHQ-9 PHQ-2 Over the last 2 weeks, how often have you been bothered by any of the following problems? 1. Little interest or pleasure in doing things: not at all 2. Feeling down, depressed, or hopeless: not at all Total score: 0 PHQ-9 3. Trouble falling or staying asleep, or sleeping too much: Not at all 4. Feeling tired or having little energy: Not at all 5. Poor appetite or overeating: Not at all 6. Feeling bad about yourself - or that you are a failure or have let yourself or your family down: Not at all 7. Trouble concentrating on things, such as reading the newspaper or watching television: Not at all 8. Moving or speaking so slowly that other people could have noticed? - Or the opposite - being so fidgety or restless that you have been moving around a lot more than usual: not at all 9. Thoughts that you would be better off or of hurting yourself in some way: Not at all Total score: 0 If you checked off any problems, how difficult have these problems made it for you to do your work, take care of things at home, or get along with other people?: not difficult at all Source: Developed by Drs. Jan Mcdonnell, Joyce Salas, Luis M Beltran and colleagues, with an educational shahrzad from [employer]. 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 No contractions, LOF, VB and reports good FM. Denies SUN, VC, and epigastric pain. - Zoe Baker is a at 29 weeks and 2 days gestation presenting for a 2- week follow-up visit. - At her last visit, she complained of reflux: - Was prescribed omeprazole but has not started it due to insurance/pharmacy issues - Was recommended to minimize use of Zofran - Current symptoms: - Reports baby is active - Denies contractions - Work status: - Still working - Considering when to start maternity leave - Feeling some discomfort at work Care OB Visit Log OB Flowsheet Initial Weight: Not Recorded Date -?-?-?-?-?-?-?-?-?-?-?-?- EGA Weight BP Alb Glu CTX Pres Fundal ht FHR Mov Dilation Station Effacement Hx Notes Visit Note 02/10/25 -?-?-?-?-?-?-?-?-?-?-?-?- 24w 2d 89.584 kg 113/75 No CTX/LOF/VB. Reports good FM. No SUN/VS, Epig/RUQ pain. Primary concern: severe left-sided sciat ica, worsened by prolonged standing. No relief with stretching or heat. Has not yet felt movement. FHR: 146?147 bpm. Assessment & Plan: 24w with left-sided sciatica. heart rate reassuring. Resubmit referral for ultrasound at [facility] 24w glucose test for GDM screening Offer workplace accommodation note: 10-min break every 2 hrs Option to call out during severe episode s Follow up in 4 weeks Reviewed labor signs and care counseling 03/03/25 -?-?-?-?-?-?-?-?-?-?-?-?- 27w 2d 90.945 kg 125/79 28 active at 27 weeks and 2 days gestation, presents for routine care. Reports ongoing left-sided sciatica, previously addressed with work accommodation, and nocturnal acid reflux affecting sleep. Notes good FM+, especially at night. Denies contractions or cramping. Glucose tolerance test and A1c both normal. FHT 158 bpm. Plan: Routine follow-up in 2 weeks Transition to weekly visits after 34 wee talisha Tdap planned for 32 weeks Growth scheduled for 03/31 at [place] [facility] Continue work accommodations for sciatic a Recommend omeprazole for GERD, avoid kaushal d 2 hrs before bed Stop ondansetron for reflux, reassess sy mptoms next visit 03/17/25 -?-?-?-?-?-?-?-?-?-?-?-?- 29w 2d 92.703 kg 109/79 at 29w2d, presents for routine visit. Reports good FM, no CTX/LOF/VB. Denies SUN, VC, or epigastric pain. Reflux symptoms persist; omeprazole not started due to pharmacy/insurance issues. Minimizing Zofran use as previously advised. Still working but experiencing discomfort; considering timing for maternity leave. FHR 162 bpm. Plan: Administer TDaP today. Draw CBC an d RPR labs. 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 Continue vitamins. Follow up in 2 weeks. Discussed possible work leave starting in 2?3 weeks or by end of March based on symptoms and HR consultation. Reviewed movement monitoring, signs of labor, and preeclampsia precautions. 03/23/25 -?-?-?-?-?-?-?-?-?-?-?-?- 30w 1d 92.079 kg 116/75 @ 30w1d with hx of prior molar , presenting for disability documentation. Reports ongoing nausea refractory to Zofran, now using Phenergan and omeprazole. Nausea persists despite meds; Zofran discontinued due to inefficacy and side effects. Also reports work-related sciatic pain. Denies CTX/LOF/VB, reports good FM. BP 148/normal. Plan: Disability leave approved starting today; [facility] forms completed. Continue Phenergan and increase omeprazole as needed. 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 Reviewed non-pharmacologic strategies. Encourage gentle activity as tolerated for sciatic pain, avoid prolonged standing. Educated on signs of preeclampsia; instructed to present to hospital if symptoms arise. Follow up as needed. 03/31/25 -?-?-?-?-?-?-?-?-?-?-?-?- 31w 2d 91.852 kg 115/75 at 31w2d, history of complete mole, presents for routine care. Reports improved energy after stopping work. Ongoing sciatica attributed to gravid uterine pressure. No CTX/LOF/VB, reports good FM. Denies SUN/VC/epigastric pain. BP now WNL after mild elevation at last visit. MFM US today: EFW 1715g ([id number]), anatomy survey normal. Plan: Follow up in 2 weeks. Clinician to complete requested forms by tomorrow; staff will notify patient. Reviewed FM precautions, signs, and third- trimester care. Continue vitamins, safe activity, and delivery prep. ALEJANDRINA Calculator Estimated Delivery Date Method Current WG Current Estimate 05/31/25 Ultrasound #1 31w 3d Notes Visit Date: 03/03/25 Last Updated by: Cm Dominguez MD Test Exam General General Appearance: alert, in no apparent distress and healthy appearing Head Head exam: atraumatic Neck Neck exam: Present normal inspection and trachea midline Chest Chest inspection: Present normal inspection and symmetric chest wall rise External exam: Present normal external exam; Absent tenderness Neuro Neurological exam: Present oriented X3 Psych Psychiatric exam: Present normal affect and normal mood Office Procedures OB Clinic LOC & Office Proc's Nursing/Assessment Patient Status: Established Patient OB Clinic Nursing Assessment: Medication Reconciliation, Update PMH in EMR and Vital Signs OB Clinic Coordination of Care: Complex Care and Chronic Disease 1-5, Consent,records obtained, informed consent, Education Simp Pt/Fam and Staff clarify orders Special Needs: Heart tones Miscellaneous Interventions: VIS to patient Established Patient Charge Established Patient Point Assignment: 125 Established Patient Point Charge: EP Level 4 (120-155) Injection/Vaccine Admin Admin 1st Vaccine: Yes Immunizations diphth,pertus(acell),tetanus 2.5 Lf unit-8 mcg-5 Lf/0.5mL IM syringe Performing Provider: Cm Dominguez MD Performing Location: [facility] ADMISSIONS DIRECTOR Clinic Administered by: Ligia Fletcher MA on 03/17/25 09:31 Dose Route Admin Location Dispensed Lot Number Expiration Date [facility] [employer] 0.5 mL IM Left Deltoid 0.5 mL [id number] 03/28/27 [id number] [place] VIS Given Date VIS Provided VIS Publication Date 03/17/25 Single Vaccine 24 Eligibility Eligibility Date Funding Source Public [facility] Assessment & Plan Diagnosis / Problem List (1) Hyperemesis affecting , antepartum: Status: Acute (2) Supervision of high risk , unspecified, third trimester: Status: Acute Plan Problem List - , 29 weeks and 2 days - Gastroesophageal reflux disease Assessment at 29 weeks and 2 days gestation presenting for routine care. Patient reports non-compliance with previously prescribed omeprazole due to pharmacy/insurance issues. heart rate auscultated at 162 bpm, which is within normal limits. Patient denies contractions and reports active movement. Patient is considering work leave options due to -related d iscomfort. Routine third-trimester laboratory tests, including CBC for anemia screening and RPR for syphilis screening, are due. Tetanus, diphtheria, and acellular pertussis (Tdap) vaccination is also due at this visit. Plan - Administer tetanus shot (TDaP) - Perform CBC and RPR blood tests - Patient to obtain [facility] forms from [facility] office and bring for completion - Follow up in 2 weeks - Consider work leave options, potentially starting in 2-3 weeks or end of March (patient to decide based on comfort level and HR consultation) 1. Progress Reviewed gestational age, growth, and heart rate. Planned frequent visits (every 2 weeks until 36 weeks, then weekly). 2. Instructed patient to monitor movements and report decreases immediately. 3. Testing Counseled on routine third-trimester labs per guidelines. Discussed potential need for ultrasound or monitoring based on risk factors. 4. Preeclampsia Precaution Educated on preeclampsia signs: severe headache, vision changes, right upper quadrant pain, sudden swelling. Advised urgent reporting of symptoms and discussed blood pressure monitoring if high risk. 5. Labor Precautions Reviewed labor signs: regular contractions, pelvic pressure, back pain, bleeding, or fluid leakage. Instructed to seek immediate care for these symptoms. 6. Lifestyle and Delivery Preparation Reinforced vitamins, nutrition, and safe activity. Discussed plan, pain management, and . Advised on labor preparation (e.g., hospital bag) and expectations. 7. Psychosocial Support Assessed emotional well-being and offered resources for mental health or parenting support.
== END 2025-03-17 09:28 | disposition home or self-care (01) ==
LOC: HODSOBC 08:32
PROVIDERS: Supervising Provider Obstetrics & Gynecology; Visit Provider Obstetrics & Gynecology
DX: O09.893 Supervision of other high risk pregnancies, third trimester (principal); Z3A.29 29 weeks gestation of pregnancy; O21.0 Mild hyperemesis gravidarum; O99.613 Diseases of the digestive system complicating pregnancy, third trimester; K21.9 Gastro-esophageal reflux disease without esophagitis; Z23 Encounter for immunization; Z88.8 Allergy status to other drugs, medicaments and biological substances; Z91.048 Other nonmedicinal substance allergy status; Z59.71 Insufficient health insurance coverage
CPT/HCPCS: 90471; 90715; 99213; 99214; G0463

== ENCOUNTER 2025-03-23 13:46 | Outpatient (AMB) | payer MEDICAID, SELFPAY ==
[2025-03-23 14:09] VITALS: BP 116/75; PULSE 97; RESP 18; TEMP 36.2; O2SAT 98; BMI 32.6
--- NOTE | 2025-03-23 14:09 | AMB.OBVISIT ---
Vital Signs 03/23/25 14:09 Height 1.68 m Height Method Stated Weight 92.079 kg Weight Measurement Method Standing Scale BMI 32.6 BP 116/75 Blood Pressure Source Automatic Cuff Blood Pressure Location Left Upper Arm Position Sitting Respiration 18 Pulse 97 Pulse Source Monitor Temp 97.2 F Temp Source Oral Pulse Oximetry (%) 98 Oxygen Delivery Method Room Air Allergies/Home Meds Allergies & Medications Allergies adhesive tape Allergy (Intermediate, Verified 03/23/25 14:09) Hives succinylcholine Allergy (Verified 03/23/25 14:09) Medication Reconciliation doxylamine 10 mg-pyridoxine (vit B6) 10 mg tablet,delayed release (Diclegis) 1 tab PO BID 30 days #60 tabs 02/10/25 [Rx Confirmed 03/23/25] omeprazole 40 mg capsule,delayed release 40 mg PO QDAY 30 days #30 caps 03/03/25 [Rx Confirmed 03/23/25] omeprazole 40 mg capsule,delayed release 40 mg PO QDAY 30 days #30 caps 03/23/25 [Rx] promethazine 25 mg tablet 25 mg PO Q6H PRN nausea and vomiting 30 days #30 tabs 03/23/25 [Rx] Intake Visit Data Collection New Patient or Established: Established Patient (seen at [facility] within 3 years) Reason for Visit:: OBC Seen by Clinical Staff ONLY (RN/MA): No Waste Elimination Required: No Do You Feel Safe at Home: Yes Authorities Contacted: N/A PCP or OBGYN visit in last 3 months: Yes Date of Last PCP or OBGYN visit: 03/17/25 Hx Now: No Are you currently on any form of Control: No Pain Present Currently: No Pain Scale Used: Andrade-Brice/Numerical Pain scale:: 0 Smoking Status Smoking Status: Never smoker Questionnaires Covid-19 Vaccine Questionnaire Has patient been vacinated for Covid-19 Have you been vacinated for Covid-19: Yes PHQ-9 PHQ-2 Over the last 2 weeks, how often have you been bothered by any of the following problems? 1. Little interest or pleasure in doing things: not at all 2. Feeling down, depressed, or hopeless: not at all Total score: 0 PHQ-9 3. Trouble falling or staying asleep, or sleeping too much: Not at all 4. Feeling tired or having little energy: Not at all 5. Poor appetite or overeating: Not at all 6. Feeling bad about yourself - or that you are a failure or have let yourself or your family down: Not at all 7. Trouble concentrating on things, such as reading the newspaper or watching television: Not at all 8. Moving or speaking so slowly that other people could have noticed? - Or the opposite - being so fidgety or restless that you have been moving around a lot more than usual: not at all 9. Thoughts that you would be better off or of hurting yourself in some way: Not at all Total score: 0 If you checked off any problems, how difficult have these problems made it for you to do your work, take care of things at home, or get along with other people?: not difficult at all Source: Developed by Drs. Jan Mcdonnell, Joyce Salas, Luis M Beltran and colleagues, with an educational shahrzad from [employer]. 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 She also mentions ongoing nausea, for which she has been taking Zofran. However, she notes that the regular pill form of Zofran has become less effective over time, causing a yucky feeling and continued vomiting. Patient expresses concern about managing her nausea symptoms now that she is being advised to discontinue Zofran use. Patient denies any contractions and reports that the baby is active. She has not mentioned any other -related symptoms or concerns during this visit. She is a 29-fiym-6-day woman () with an estimated due date of 05/31/2025, presenting for disability leave documentation. Her medical history is significant for a molar last year. She has a history of molar removal last year. She is currently taking Omeprazole and Phenergan (promethazine). She has stopped taking Zofran as it stopped working after a while, gave her a yucky feeling, and she was throwing up even after taking it. Patient is currently employed and planning to go on leave. She lives in an apartment (first apartment mentioned). Care OB Visit Log OB Flowsheet Initial Weight: Not Recorded Date <del>?</del> EGA Weight BP Alb Glu CTX Pres Fundal ht FHR Mov Dilation Station Effacement Hx Notes Visit Note 02/10/25 <del>?</del> 24w 2d 89.584 kg 113/75 No CTX/LOF/VB. Reports good FM. No SUN/VS, Epig/RUQ pain. Primary concern: severe left-sided sciatica, worsened by prolonged standing. No relief with stretching or heat. Has not yet felt movement. FHR: 146?147 bpm. Assessment & Plan: 24w with left-sided sciatica. heart rate reassuring. Resubmit referral for ultrasound at [facility] Order 24w glucose test for GDM screening Offer workplace accommodation note: 10-min break every 2 hrs Option to call out during severe episodes Follow up in 4 weeks Reviewed labor signs and care counseling 03/03/25 <del>?</del> 27w 2d 90.945 kg 125/79 28 active at 27 weeks and 2 days gestation, presents for routine care. Reports ongoing left-sided sciatica, previously addressed with work accommodation, and nocturnal acid reflux affecting sleep. Notes good FM+, especially at night. Denies contractions or cramping. Glucose tolerance test and A1c both normal. FHT 158 bpm. Plan: Routine follow-up in 2 weeks Transition to weekly visits after 34 weeks Tdap planned for 32 weeks Growth US scheduled for 03/31 at [facility] Continue work accommodations for sciatica Recommend omeprazole for GERD, avoid food 2 hrs before bed Stop ondansetron for reflux, reassess symptoms next visit 03/23/25 <del>?</del> 30w 1d 92.079 kg 116/75 @ 30w1d with hx of prior molar , presenting for disability documentation. Reports ongoing nausea refractory to Zofran, now using Phenergan and omeprazole. Nausea persists despite meds; Zofran discontinued due to inefficacy and side effects. Also reports work-related sciatic pain. Denies CTX/LOF/VB, reports good FM. BP 148/normal. Plan: Disability leave approved starting today; WIC forms completed. Continue Phenergan and increase omeprazole as needed. 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 Reviewed non-pharmacologic strategies. Encourage gentle activity as tolerated for sciatic pain, avoid prolonged standing. Educated on signs of preeclampsia; instructed to present to hospital if symptoms arise. Follow up as needed. ALEJANDRINA Calculator Estimated Delivery Date Method Current WG Current Estimate 05/31/25 Ultrasound #1 30w 3d Notes Visit Date: 03/03/25 Last Updated by: Cm Dominguez MD Test Exam General General Appearance: alert, in no apparent distress and healthy appearing Head Head exam: atraumatic Neck Neck exam: Present normal inspection and trachea midline Chest Chest inspection: Present normal inspection and symmetric chest wall rise External exam: Present normal external exam; Absent tenderness Neuro Neurological exam: Present oriented X3 Psych Psychiatric exam: Present normal affect and normal mood Office Procedures OB Clinic LOC & Office Proc's Nursing/Assessment Patient Status: Established Patient OB Clinic Nursing Assessment: Medication Reconciliation, Update PMH in EMR and Vital Signs OB Clinic Coordination of Care: Education Complex Pt/Fam, Consent,records obtained, informed consent, Lab and Imaging orders, Results/Orders obtained and Staff clarify orders Established Patient Charge Established Patient Point Assignment: 85 Established Patient Point Charge: EP Level 3 (80-115) Assessment & Plan Diagnosis / Problem List (1) Supervision of high risk , unspecified, second trimester: Status: Acute (2) Hyperemesis affecting , antepartum: Status: Acute Plan , 30 weeks 1 day gestation: - at 30 weeks 1 day gestation, ALEJANDRINA 05/31/2025. - History of molar last year. - Reports sciatic pain and ongoing nausea. - movement present, no reported contractions. - Blood pressure 148, noted as normal. - Provide work leave documentation starting from today evening. - Discontinue Zofran. - Prescribe promethazine (Phenergan) for nausea as needed. - Recommend increased omeprazole dosage for acid reduction. - Advise on meal timing and avoiding nausea triggers. - Educate patient on signs of pre-eclampsia. - Instruct patient to present to hospital if pre-eclampsia symptoms occur. - Encourage staying active during leave. - Complete [employer] forms. - Recommend online filing for disability benefits. - Follow up as needed. Nausea and vomiting of : - Discontinue Zofran. - Prescribe promethazine (Phenergan) for nausea as needed. - Recommend increased omeprazole dosage for acid reduction. - Advise on meal timing and avoiding nausea triggers. - Educate on non-pharmacological management of nausea. Sciatic pain: - Provide work leave documentation. - Recommend rest and reduced time on feet. - Encourage staying active within comfortable limits.
== END 2025-03-23 14:39 | disposition home or self-care (01) ==
LOC: HODSOBC 13:46
PROVIDERS: Supervising Provider Obstetrics & Gynecology; Visit Provider Obstetrics & Gynecology
DX: O09.893 Supervision of other high risk pregnancies, third trimester (principal); Z3A.30 30 weeks gestation of pregnancy; O21.0 Mild hyperemesis gravidarum; O99.353 Diseases of the nervous system complicating pregnancy, third trimester; M54.32 Sciatica, left side
CPT/HCPCS: 99213; G0463

== ENCOUNTER 2025-03-31 13:57 | Outpatient (AMB) | payer MEDICAID, SELFPAY ==
--- NOTE | 2025-03-31 14:39 | OBCLNT_ITS ---
Vital Signs 03/31/25 14:43 Height 1.68 m Height Method Stated Weight 91.852 kg Weight Measurement Method Standing Scale BMI 32.5 BP 115/75 Blood Pressure Source Automatic Cuff Blood Pressure Location Left Upper Arm Position Sitting Respiration 18 Pulse 87 Pulse Source Monitor Temp 97.2 F Temp Source Oral Pulse Oximetry (%) 98 Oxygen Delivery Method Room Air Allergies/Home Meds Allergies & Medications Allergies adhesive tape Allergy (Intermediate, Verified 03/31/25 14:44) Hives succinylcholine Allergy (Verified 03/31/25 14:44) Medication Reconciliation doxylamine 10 mg-pyridoxine (vit B6) 10 mg tablet,delayed release (Diclegis) 1 tab PO BID 30 days #60 tabs 02/10/25 [Rx Confirmed 03/31/25] omeprazole 40 mg capsule,delayed release 40 mg PO QDAY 30 days #30 caps 03/03/25 [Rx Confirmed 03/31/25] omeprazole 40 mg capsule,delayed release 40 mg PO QDAY 30 days #30 caps 03/23/25 [Rx Confirmed 03/31/25] promethazine 25 mg tablet 25 mg PO Q6H PRN nausea and vomiting 30 days #30 tabs 03/23/25 [Rx Confirmed 03/31/25] Intake Visit Data Collection New Patient or Established: Established Patient (seen at [facility] within 3 years) Reason for Visit:: obc Seen by Clinical Staff ONLY (RN/MA): No Network Professional Required: No Do You Feel Safe at Home: Yes Authorities Contacted: N/A PCP or OBGYN visit in last 3 months: Yes Date of Last PCP or OBGYN visit: 03/23/25 Hx Now: Yes Are you currently on any form of Control: No Pain Present Currently: No Pain Scale Used: Andrade-Brice/Numerical Pain scale:: 0 Smoking Status Smoking Status: Never smoker Questionnaires Covid-19 Vaccine Questionnaire Has patient been vacinated for Covid-19 Have you been vacinated for Covid-19: Yes PHQ-9 PHQ-2 Over the last 2 weeks, how often have you been bothered by any of the following problems? 1. Little interest or pleasure in doing things: not at all 2. Feeling down, depressed, or hopeless: not at all Total score: 0 PHQ-9 3. Trouble falling or staying asleep, or sleeping too much: Not at all 4. Feeling tired or having little energy: Not at all 5. Poor appetite or overeating: Not at all 6. Feeling bad about yourself - or that you are a failure or have let yourself or your family down: Not at all 7. Trouble concentrating on things, such as reading the newspaper or watching television: Not at all 8. Moving or speaking so slowly that other people could have noticed? - Or the opposite - being so fidgety or restless that you have been moving around a lot more than usual: not at all 9. Thoughts that you would be better off or of hurting yourself in some way: Not at all Total score: 0 If you checked off any problems, how difficult have these problems made it for you to do your work, take care of things at home, or get along with other people?: not difficult at all Source: Developed by Drs. Jan Mcdonnell, Joyce Salas, Luis M Beltran and colleagues, with an educational sharhzad from [employer]. 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 No contractions, LOF, VB and reports good FM. Denies SUN, VC, and epigastric pain. - Sonja Baker is a 19-year-old female, , at 31 weeks and 2 days gestation presenting for routine care. - Past obstetric history significant for a complete mole. - Current has been within normal limits. - Patient reports: - Feeling less tired since stopping work - Ongoing sciatic pain - Worsened by the weight of the - Expected to persist until delivery due to uterine pressure on the spine and sciatic nerve - Blood pressure: - Was slightly elevated at the last appointment - Now within normal limits heart tones: [Not mentioned] bpm. Laboratory, Imaging, and Diagnostic Test Results - Date: SunMar 31 2025 - [facility] Ultrasound: - Estimated weight: 1715 grams (3 pounds 12 ounces) - Gestational age: 31 weeks and 2 days - Anatomy survey: Normal, no abnormalities detected Care OB Visit Log OB Flowsheet Initial Weight: Not Recorded Date -?-?-?-?-?-?-?-?-?-?-?-?- EGA Weight BP Alb Glu CTX Pres Fundal ht FHR Mov Dilation Station Effacement Hx Notes Visit Note 02/10/25 -?-?-?-?-?-?-?-?-?-?-?-?- 24w 2d 89.584 kg 113/75 No CTX/LOF/VB. Reports good FM. No SUN/VS, Epig/RUQ pain. Primary concern: severe left-sided sciat ica, worsened by prolonged standing. No relief with stretching or heat. Has not yet felt movement. FHR: 146?147 bpm. Assessment & Plan: 24w with left-sided sciatica. heart rate reassuring. Resubmit referral for ultrasound at [facility] 24w glucose test for GDM screening Offer workplace accommodation note: 10-min break every 2 hrs Option to call out during severe episode s Follow up in 4 weeks Reviewed labor signs and care counseling 03/03/25 -?-?-?-?-?-?-?-?-?-?-?-?- 27w 2d 90.945 kg 125/79 28 active at 27 weeks and 2 days gestation, presents for routine care. Reports ongoing left-sided sciatica, previously addressed with work accommodation, and nocturnal acid reflux affecting sleep. Notes good FM+, especially at night. Denies contractions or cramping. Glucose tolerance test and A1c both normal. FHT 158 bpm. Plan: Routine follow-up in 2 weeks Transition to weekly visits after 34 wee talisha Tdap planned for 32 weeks Growth US scheduled for 03/31 at [facility] Continue work accommodations for sciatic a Recommend omeprazole for GERD, avoid kaushal d 2 hrs before bed Stop ondansetron for reflux, reassess sy mptoms next visit 03/23/25 -?-?-?-?-?-?-?-?-?-?-?-?- 30w 1d 92.079 kg 116/75 @ 30w1d with hx of prior molar , presenting for disability documentation. Reports ongoing nausea refractory to Zofran, now using Phenergan and omeprazole. Nausea persists despite meds; Zofran discontinued due to inefficacy and side effects. Also reports work-related sciatic pain. Denies CTX/LOF/VB, reports good FM. BP 148/normal. Plan: Disability leave approved starting today; [facility] forms completed. Continue Phenergan and increase omeprazole as needed. 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 Reviewed non-pharmacologic strategies. Encourage g entle activity as tolerated for sciatic pain, avoid prolonged standing. Educated on signs of preeclampsia; instructed to present to hospital if symptoms arise. Follow up as needed. 03/31/25 -?-?-?-?-?-?-?-?-?-?-?-?- 31w 2d 91.852 kg 115/75 at 31w2d, history of complete mole, presents for routine care. Reports improved energy after stopping work. Ongoing sciatica attributed to gravid uterine pressure. No CTX/LOF/VB, reports good FM. Denies SUN/VC/epigastric pain. BP now WNL after mild elevation at last visit. MFM US today: EFW 1715g ([id number]), anatomy survey normal. Plan: Follow up in 2 weeks. Clinician to complete requested forms by tomorrow; staff will notify patient. Reviewed FM precautions, signs, and third- trimester care. Continue vitamins, safe activity, and delivery prep. ALEJANDRINA Calculator Estimated Delivery Date Method Current WG Current Estimate 05/31/25 Ultrasound #1 31w 3d Notes Visit Date: 03/03/25 Last Updated by: Cm Dominguez MD Test Exam General General Appearance: alert, in no apparent distress and healthy appearing Head Head exam: atraumatic Neck Neck exam: Present normal inspection and trachea midline Chest Chest inspection: Present normal inspection and symmetric chest wall rise External exam: Present normal external exam; Absent tenderness Neuro Neurological exam: Present oriented X3 Psych Psychiatric exam: Present normal affect and normal mood Office Procedures OB Clinic LOC & Office Proc's Nursing/Assessment Patient Status: Established Patient OB Clinic Nursing Assessment: Medication Reconciliation, Update PMH in EMR and Vital Signs OB Clinic Coordination of Care: Education Complex Pt/Fam, Consent,records obtained, informed consent, Lab and Imaging orders, Results/Orders obtained and Staff clarify orders Special Needs: Heart tones Established Patient Charge Established Patient Point Assignment: 115 Established Patient Point Charge: EP Level 3 (80-115) Assessment & Plan Diagnosis / Problem List (1) Hyperemesis affecting , antepartum: Status: Acute (2) Supervision of high risk , unspecified, second trimester: Status: Acute Plan Problem List - , 31 weeks and 2 days gestation - History of complete hydatidiform mole - Sciatica - Cholestasis of Assessment at 31 weeks 2 days gestation presenting for routine care. History significant for complete mole. Current within normal limits. Patient reported ongoing sciatic pain, likely due to mechanical pressure from the gravid uterus. MFM ultrasound performed today showed estimated weight of 1715 grams (3 pounds 12 ounces), consistent with gestational age. Anatomy survey normal with no detected abnormalities. Previously noted elevated blood pressure has resolved and is now within normal limits. Plan - Follow up in 2 weeks - Clinician will complete necessary forms by tomorrow - Office staff will call patient once forms are completed 1. Progress Reviewed gestational age, growth, and heart rate. Planned frequent visits (every 2 weeks until 36 weeks, then weekly). 2. Instructed patient to monitor movements and report decreases immed iately. 3. Testing Counseled on routine third-trimester labs per guidelines. Discussed potential need for ultrasound or monitoring based on risk factors. 4. Preeclampsia Precaution Educated on preeclampsia signs: severe headache, vision changes, right upper quadrant pain, sudden swelling. Advised urgent reporting of symptoms and discussed blood pressure monitoring if high risk. 5. Labor Precautions Reviewed labor signs: regular contractions, pelvic pressure, back pain, bleeding, or fluid leakage. Instructed to seek immediate care for these symptoms. 6. Lifestyle and Delivery Preparation Reinforced vitamins, nutrition, and safe activity. Discussed plan, pain management, and . Advised on labor preparation (e.g., hospital bag) and expectations. 7. Psychosocial Support Assessed emotional well-being and offered resources for mental health or parenting support.
[2025-03-31 14:43] VITALS: BP 115/75; PULSE 87; RESP 18; TEMP 36.2; O2SAT 98; BMI 32.5
== END 2025-03-31 15:10 | disposition home or self-care (01) ==
LOC: HODSOBC 13:57
PROVIDERS: Supervising Provider Obstetrics & Gynecology; Visit Provider Obstetrics & Gynecology
DX: O09.893 Supervision of other high risk pregnancies, third trimester (principal); O09.A3 Supervision of pregnancy with history of molar pregnancy, third trimester; O21.0 Mild hyperemesis gravidarum; O26.643 Intrahepatic cholestasis of pregnancy, third trimester; Z3A.31 31 weeks gestation of pregnancy; O99.353 Diseases of the nervous system complicating pregnancy, third trimester; M54.30 Sciatica, unspecified side; Z88.8 Allergy status to other drugs, medicaments and biological substances; Z91.048 Other nonmedicinal substance allergy status
CPT/HCPCS: 99213; G0463

== ENCOUNTER 2025-04-14 12:59 | Outpatient (AMB) | payer MEDICAID, SELFPAY ==
[2025-04-14 13:03] VITALS: BP 117/78; PULSE 92; RESP 17; TEMP 36.5; O2SAT 98; BMI 32.8
--- NOTE | 2025-04-14 13:03 | OBCLNT_ITS ---
Vital Signs 04/14/25 13:03 Height 1.68 m Height Method Measured Weight 92.306 kg Weight Measurement Method Standing Scale BMI 32.8 BP 117/78 Blood Pressure Source Automatic Cuff Blood Pressure Location Right Upper Arm Position Sitting Respiration 17 Pulse 92 Pulse Source Monitor Temp 97.7 F Temp Source Temporal Artery Scan Pulse Oximetry (%) 98 Oxygen Delivery Method Room Air Allergies/Home Meds Allergies & Medications Allergies adhesive tape Allergy (Intermediate, Verified 04/14/25 13:04) Hives succinylcholine Allergy (Verified 04/14/25 13:04) Medication Reconciliation doxylamine 10 mg-pyridoxine (vit B6) 10 mg tablet,delayed release (Diclegis) 1 tab PO BID 30 days #60 tabs 02/10/25 [Rx Confirmed 04/14/25] omeprazole 40 mg capsule,delayed release 40 mg PO QDAY 30 days #30 caps 03/23/25 [Rx Confirmed 04/14/25] promethazine 25 mg tablet 25 mg PO Q6H PRN nausea and vomiting 30 days #30 tabs 03/23/25 [Rx Confirmed 04/14/25] Intake Visit Data Collection New Patient or Established: Established Patient (seen at [facility] within 3 years) Reason for Visit:: [facility] Consent obtained for Telemed Visit: No Seen by Clinical Staff ONLY (RN/MA): No [employer] Required: No Do You Feel Safe at Home: Yes Authorities Contacted: N/A PCP or OBGYN visit in last 3 months: Yes Date of Last PCP or OBGYN visit: 03/31/25 Hx Now: Yes Are you currently on any form of Control: No Pain Present Currently: No Pain Scale Used: Andrade-Brice/Numerical Pain scale:: 0 Smoking Status Smoking Status: Never smoker Questionnaires Covid-19 Vaccine Questionnaire Has patient been vacinated for Covid-19 Have you been vacinated for Covid-19: No PHQ-9 PHQ-2 Over the last 2 weeks, how often have you been bothered by any of the following problems? 1. Little interest or pleasure in doing things: not at all 2. Feeling down, depressed, or hopeless: not at all Total score: 0 PHQ-9 3. Trouble falling or staying asleep, or sleeping too much: Not at all 4. Feeling tired or having little energy: Not at all 5. Poor appetite or overeating: Not at all 6. Feeling bad about yourself - or that you are a failure or have let yourself or your family down: Not at all 7. Trouble concentrating on things, such as reading the newspaper or watching television: Not at all 8. Moving or speaking so slowly that other people could have noticed? - Or the opposite - being so fidgety or restless that you have been moving around a lot more than usual: not at all 9. Thoughts that you would be better off or of hurting yourself in some way: Not at all Total score: 0 If you checked off any problems, how difficult have these problems made it for you to do your work, take care of things at home, or get along with other people?: not difficult at all Source: Developed by Drs. Jan Mcdonnell, Joyce Salas, Luis M Beltran and colleagues, with an educational shahrzad from [employer]. 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 No contractions, LOF, VB and reports good FM. Denies SUN, VC, and epigastric pain. - Sonja Baker is a female patient presenting for routine care at 33 weeks and 2 days gestation. - She reports experiencing sciatic pain. - Patient states she has been doing fine in this otherwise. - She confirms the baby is active. - Patient denies experiencing contractions. - She reports exercising and staying on her feet. Care OB Visit Log OB Flowsheet Initial Weight: Not Recorded Date -?-?-?-?-?-?-?-?-?-?-?-?- EGA Weight BP Alb Glu CTX Pres Fundal ht FHR Mov Dilation Station Effacement Hx Notes Visit Note 02/10/25 -?-?-?-?-?-?-?-?-?-?-?-?- 24w 2d 89.584 kg 113/75 No CTX/LOF/VB. Reports good FM. No SUN/VS, Epig/RUQ pain. Primary concern: severe left-sided sciat ica, worsened by prolonged standing. No relief with stretching or heat. Has not yet felt movement. FHR: 146?147 bpm. Assessment & Plan: 24w with left-sided sciatica. heart rate reassuring. Resubmit referral for ultrasound at [facility] 24w glucose test for GDM screening Offer workplace accommodation note: 10-min break every 2 hrs Option to call out during severe episode s Follow up in 4 weeks Reviewed labor signs and care counseling 03/03/25 -?-?-?-?-?--?-?-?-?-?-?-?- 27w 2d 90.945 kg 125/79 28 active at 27 weeks and 2 days gestation, presents for routine care. Reports ongoing left-sided sciatica, previously addressed with work accommodation, and nocturnal acid reflux affecting sleep. Notes good FM+, especially at night. Denies contractions or cramping. Glucose tolerance test and A1c both normal. FHT 158 bpm. Plan: Routine follow-up in 2 weeks Transition to weekly visits after 34 wee ks Tdap planned for 32 weeks Growth US scheduled for 03/31 at [facility] Continue work accommodations for sciatic a Recommend omeprazole for GERD, avoid kaushal d 2 hrs before bed Stop ondansetron for reflux, reassess sy mptoms next visit 03/17/25 -?-?-?-?-?--?-?-?-?-?-?-?- 29w 2d 92.703 kg 109/79 at 29w2d, presents for routine visit. Reports good FM, no CTX/LOF/VB. Denies SUN, VC, or epigastric pain. Reflux symptoms persist; omeprazole not started due to pharmacy/insurance issues. Minimizing Zofran use as previously advised. Still working but experiencing discomfort; considering timing for maternity leave. FHR 162 bpm. Plan: Administer TDaP today. Draw CBC an d RPR labs. 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 Continue vitamins. Follow up in 2 weeks. Discussed possible work leave starting in 2?3 weeks or by end of March based on symptoms and HR consultation. Reviewed movement monitoring, signs of labor, and preeclampsia precautions. 03/23/25 -?-?-?-?-?-?-?-?-?-?-?-?- 30w 1d 92.079 kg 116/75 @ 30w1d with hx of prior molar , presenting for disability documentation. Reports ongoing nausea refractory to Zofran, now using Phenergan and omeprazole. Nausea persists despite meds; Zofran discontinued due to inefficacy and side effects. Also reports work-related sciatic pain. Denies CTX/LOF/VB, reports good FM. BP 148/normal. Plan: Disability leave approved starting today; [facility] forms completed. Continue Phenergan and increase omeprazole as needed. 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 Reviewed non-pharmacologic strategies. Encourage gentle activity as tolerated for sciatic pain, avoid prolonged standing. Educated on signs of preeclampsia; instructed to present to hospital if symptoms arise. Follow up as needed. 03/31/25 -?-?-?-?-?-?-?-?-?-?-?-?- 31w 2d 91.852 kg 115/75 at 31w2d, history of complete mole, presents for routine care. Reports improved energy after stopping work. Ongoing sciatica attributed to gravid uterine pressure. No CTX/LOF/VB, reports good FM. Denies SUN/VC/epigastric pain. BP now WNL after mild elevation at last visit. MFM US today: EFW 1715g ([id number]), anatomy survey normal. Plan: Follow up in 2 weeks. Clinician to complete requested forms by tomorrow; staff will notify patient. Reviewed FM precautions, signs, and third- trimester care. Continue vitamins, safe activity, and delivery prep. 04/14/25 -?-?-?-?-?-?-?-?-?-?-?-?- 33w 2d 92.306 kg 117/78 absent 32 137 ac tive No CTX/LOF/VB, reports good FM. FHR 137. Complains of sciatica. Labs show mild anemia (Hgb 11.2). FU in 3 wks for 36w visit and GBS swab. Continue routine care. ALEJANDRINA Calculator Estimated Delivery Date Method Current WG Current Estimate 05/31/25 Ultrasound #1 33w 2d Notes Visit Date: 03/03/25 Last Updated by: Cm Dominguez MD Test Exam General General Appearance: alert, in no apparent distress and healthy appearing Head Head exam: atraumatic Neck Neck exam: Present normal inspection and trachea midline Chest Chest inspection: Present normal inspection and symmetric chest wall rise External exam: Present normal external exam; Absent tenderness Neuro Neurological exam: Present oriented X3 Psych Psychiatric exam: Present normal affect and normal mood Office Procedures OB Clinic LOC & Office Proc's Nursing/Assessment Patient Status: Established Patient OB Clinic Nursing Assessment: Medication Reconciliation, Update PMH in EMR and Vital Signs OB Clinic Coordination of Care: Complex Care and Chronic Disease 1-5, Consent,records obtained, informed consent, 4+ Authorizations needed, Lab and Imaging orders and Staff clarify orders Special Needs: Heart tones Established Patient Charge Established Patient Point Assignment: 140 Established Patient Point Charge: EP Level 4 (120-155) Assessment & Plan Diagnosis / Problem List (1) Supervision of high risk , unspecified, third trimester: Status: Acute Plan Problem List - , 33 weeks and 2 days gestation - Sciatica - Mild anemia Assessment G_P_ at 33 weeks and 2 days gestation presenting for routine care. Patient reports sciatic pain but otherwise doing well in . Recent labs from 03/25/2025 show hemoglobin 11.2 g/dL, hematocrit slightly low at 33.6%, and non-reactive RPR. movement is present with no reported contractions. heart rate 137 bpm, within normal range. Plan - Follow-up appointment scheduled in 3 weeks (at 36 weeks gestation) - Perform culture swab at 36-week appointment - Continue current care regimen 1. Progress Reviewed gestational age, growth, and heart rate. Planned frequent visits (every 2 weeks until 36 weeks, then weekly). 2. Instructed patient to monitor movements and report decreases immediately. 3. Testing Counseled on routine third-trimester labs per guidelines. Discussed potential need for ultrasound or monitoring based on risk factors. 4. Preeclampsia Precaution Educated on preeclampsia signs: severe headache, vision changes, right upper quadrant pain, sudden swelling. Advised urgent reporting of symptoms and discussed blood pressure monitoring if high risk. 5. Labor Precautions Reviewed labor signs: regular contractions, pelvic pressure, back pain, bleeding, or fluid leakage. Instructed to seek immediate care for these symptoms. 6. Lifestyle and Delivery Preparation Reinforced vitamins, nutrition, and safe activity. Discussed plan, pain management, and . Advised on labor preparation (e.g., hospital bag) and expectations. 7. Psychosocial Support Assessed emotional well-being and offered resources for mental health or parenting support.
== END 2025-04-14 13:40 | disposition home or self-care (01) ==
LOC: HODSOBC 12:59
PROVIDERS: PCP Obstetrics & Gynecology; Referring Provider Obstetrics & Gynecology; Supervising Provider Obstetrics & Gynecology; Visit Provider Obstetrics & Gynecology
DX: O09.893 Supervision of other high risk pregnancies, third trimester (principal); M54.30 Sciatica, unspecified side; O99.353 Diseases of the nervous system complicating pregnancy, third trimester; Z3A.33 33 weeks gestation of pregnancy; O99.013 Anemia complicating pregnancy, third trimester; Z36.85 Encounter for antenatal screening for Streptococcus B; Z88.8 Allergy status to other drugs, medicaments and biological substances; Z91.048 Other nonmedicinal substance allergy status
CPT/HCPCS: 99214; G0463

== ENCOUNTER 2025-05-01 10:07 | Outpatient (AMB) | payer MEDICAID, SELFPAY ==
--- NOTE | 2025-05-01 10:22 | OBCLNT_ITS ---
Vital Signs 05/01/25 10:23 Height 1.68 m Height Method Stated Weight 94.064 kg Weight Measurement Method Standing Scale BMI 33.3 BP 114/75 Blood Pressure Source Automatic Cuff Blood Pressure Location Left Upper Arm Position Sitting Respiration 16 Pulse 88 Pulse Source Monitor Temp 97.7 F Temp Source Oral Pulse Oximetry (%) 95 Oxygen Delivery Method Room Air Allergies/Home Meds Allergies & Medications Allergies adhesive tape Allergy (Intermediate, Verified 05/01/25 10:24) Hives succinylcholine Allergy (Verified 05/01/25 10:24) Medication Reconciliation doxylamine 10 mg-pyridoxine (vit B6) 10 mg tablet,delayed release (Diclegis) 1 tab PO BID 30 days #60 tabs 02/10/25 [Rx Confirmed 05/01/25] omeprazole 40 mg capsule,delayed release 40 mg PO QDAY 30 days #30 caps 03/23/25 [Rx Confirmed 05/01/25] Intake Visit Data Collection New Patient or Established: Established Patient (seen at [facility] within 3 years) Reason for Visit:: CARE Seen by Clinical Staff ONLY (RN/MA): No Senior Quality Control Technician Required: No Do You Feel Safe at Home: Yes Authorities Contacted: N/A PCP or OBGYN visit in last 3 months: Yes Hx Now: Yes Are you currently on any form of Control: No Pain Present Currently: No Pain Scale Used: Andrade-Brice/Numerical Pain scale:: 0 Smoking Status Smoking Status: Never smoker Questionnaires Covid-19 Vaccine Questionnaire Has patient been vacinated for Covid-19 Have you been vacinated for Covid-19: Yes PHQ-9 PHQ-2 Over the last 2 weeks, how often have you been bothered by any of the following problems? 1. Little interest or pleasure in doing things: not at all 2. Feeling down, depressed, or hopeless: not at all Total score: 0 PHQ-9 3. Trouble falling or staying asleep, or sleeping too much: Not at all 4. Feeling tired or having little energy: Not at all 5. Poor appetite or overeating: Not at all 6. Feeling bad about yourself - or that you are a failure or have let yourself or your family down: Not at all 7. Trouble concentrating on things, such as reading the newspaper or watching television: Not at all 8. Moving or speaking so slowly that other people could have noticed? - Or the opposite - being so fidgety or restless that you have been moving around a lot more than usual: not at all 9. Thoughts that you would be better off or of hurting yourself in some way: Not at all Total score: 0 Source: Developed by Drs. Jan Mcdonnell, Joyce Salas, Luis M Beltran and colleagues, with an educational shahrzad from [employer]. 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 History Past Medical History: No Hx Neurological Disorders, No Hx Hypothyroidism, No Hx Hyperthyroidism, No Hx Breast Cancer, No Hx Cardiac Disorders, No Hx Cancer, No Hx Blood Disorders, No Hx Anemia, No Hx Gastrointestinal Disorders, No Hx Renal Disease, No Hx Diabetes Mellitus Type 1, No Hx Diabetes Mellitus Type 2 and No Hx Polycystic Ovarian Syndrome Care OB Visit Log OB Flowsheet Initial Weight: Not Recorded Date -?-?-?-?-?-?-?-?-?-?-?-?- EGA Weight BP Alb Glu CTX Pres Fundal ht FHR Mov Dilation Station Effacement Hx Notes Visit Note 02/10/25 -?-?-?-?-?-?-?-?-?-?-?-?- 24w 2d 89.584 kg 113/75 No CTX/LOF/VB. Reports good FM. No SUN/VS, Epig/RUQ pain. Primary concern: severe left-sided sciat ica, worsened by prolonged standing. No relief with stretching or heat. Has not yet felt movement. FHR: 146?147 bpm. Assessment & Plan: 24w with left-sided sciatica. heart rate reassuring. Resubmit referral for ultrasound at [facility] 24w glucose test for GDM screening Offer workplace accommodation note: 10-min break every 2 hrs Option to call out during severe episode s Follow up in 4 weeks Reviewed labor signs and care counseling 03/03/25 -?-?-?-?-?-?-?-?-?-?-?-?- 27w 2d 90.945 kg 125/79 28 active at 27 weeks and 2 days gestation, presents for routine care. Reports ongoing left-sided sciatica, previously addressed with work accommodation, and nocturnal acid reflux affecting sleep. Notes good FM+, especially at night. Denies contractions or cramping. Glucose tolerance test and A1c both normal. FHT 158 bpm. Plan: Routine follow-up in 2 weeks Transition to weekly visits after 34 wee ks Tdap planned for 32 weeks Growth scheduled for 03/31 at [facility] Continue work accommodations for sciatic a Recommend omeprazole for GERD, avoid kaushal d 2 hrs before bed Stop ondansetron for reflux, reassess sy mptoms next visit 03/17/25 -?-?-?-?-?-?-?-?-?-?-?-?- 29w 2d 92.703 kg 109/79 at 29w2d, presents for routine visit. Reports good FM, no CTX/LOF/VB. Denies SUN, VC, or epigastric pain. Reflux symptoms persist; omeprazole not started due to pharmacy/insurance issues. Minimizing Zofran use as previously advised. Still working but experiencing discomfort; considering timing for maternity leave. FHR 162 bpm. Plan: Administer TDaP today. Draw CBC an d RPR labs. 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 Continue vitamins. Follow up in 2 weeks. Discussed possible work leave starting in 2?3 weeks or by end of March based on symptoms and HR consultation. Reviewed movement monitoring, signs of labor, and preeclampsia precautions. 03/23/25 -?-?-?-?-?-?-?-?-?-?-?-?- 30w 1d 92.079 kg 116/75 @ 30w1d with hx of prior molar , presenting for disability documentation. Reports ongoing nausea refractory to Zofran, now using Phenergan and omeprazole. Nausea persists snehal pite meds; Zofran discontinued due to inefficacy and side effects. Also reports work-related sciatic pain. Denies CTX/LOF/VB, reports good FM. BP 148/normal. Plan: Disability leave approved starting today; WIC forms completed. Continue Phenergan and increase omeprazole as needed. 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 Reviewed non-pharmacologic strategies. Encourage gentle activity as tolerated for sciatic pain, avoid prolonged standing. Educated on signs of preeclampsia; instructed to present to hospital if symptoms arise. Follow up as needed. 03/31/25 -?-?-?-?-?-?-?-?-?-?-?-?- 31w 2d 91.852 kg 115/75 at 31w2d, history of complete mole, presents for routine care. Reports improved energy after stopping work. Ongoing sciatica attributed to gravid uterine pressure. No CTX/LOF/VB, reports good FM. Denies SUN/VC/epigastric pain. BP now WNL after mild elevation at last visit. MFM US today: EFW 1715g ([id number]), anatomy survey normal. Plan: Follow up in 2 weeks. Clinician to complete requested forms by tomorrow; staff will notify patient. Reviewed FM precautions, signs, and third- trimester care. Continue vitamins, safe activity, and delivery prep. 04/14/25 -?-?-?-?-?-?-?-?-?-?-?-?- 33w 2d 92.306 kg 117/78 absent 32 137 ac tive No CTX/LOF/VB, reports good FM. FHR 137. Complains of sciatica. Labs show mild anemia (Hgb 11.2). FU in 3 wks for 36w visit and GBS swab. Continue routine care. 05/01/25 -?-?-?-?-?-?-?-?-?-?-?-?- 35w 5d 94.064 kg 114/75 occasional unknown 35 145 active at 35w4d with pelvic pressure, no CTX/LOF/VB, FM+, FHR 159. Plan: Sono in 1?2wks for EFW, hospital registration, weekly visits starting next week with booking supervisor Maria A f/u with Dr. Dominguez in 2wks. ALEJANDRINA Calculator Estimated Delivery Date Method Current WG Current Estimate 05/31/25 Ultrasound #1 35w 5d Notes Visit Date: 03/03/25 Last Updated by: Cm Dominguez MD Test Office Procedures OB Clinic LOC & Office Proc's Nursing/Assessment Patient Status: Established Patient OB Clinic Nursing Assessment: Medication Reconciliation, Update PMH in EMR and Vital Signs OB Clinic Coordination of Care: Complex Care and Chronic Disease 1-5, Consent,records obtained, informed consent, Education Simp Pt/Fam, Lab and Imaging orders, Results/Orders obtained and Staff clarify orders Miscellaneous Interventions: Culture Specimen Collection Established Patient Charge Established Patient Point Assignment: 120 Established Patient Point Charge: EP Level 4 (120-155) Assessment & Plan Diagnosis / Problem List (1) Uterine size date discrepancy: Status: Acute Plan Problem List - , 35 weeks and 4 days gestation - 2 para 0 - Pelvic pressure Assessment 2 para 0 at 35 weeks and 4 days gestation presenting for routine care. Patient reports pelvic pressure but denies contractions, leaking fluid, or other concerning symptoms. heart rate auscultated at 159 bpm, which is within normal limits. Patient reports normal movement. Recent baby shower completed, indicating preparation for care. Plan - Schedule ultrasound in 1-2 weeks to check baby's weight - [place] at the hospital for upcoming delivery - Follow up weekly starting next week, with booking supervisor Maria A - Follow up with Dr. Dominguez in two weeks 1. Progress Reviewed gestational age, growth, and heart rate. Planned frequent visits (every 2 weeks until 36 weeks, then weekly). 2. Instructed patient to monitor movements and report decreases immediately. 3. Testing Counseled on routine third-trimester labs per guidelines. Discussed potential need for ultrasound or monitoring based on risk factors. 4. Preeclampsia Precaution Educated on preeclampsia signs: severe headache, vision changes, right upper quadrant pain, sudden swelling. Advised urgent reporting of symptoms and discussed blood pressure monitoring if high risk. 5. Labor Precautions Reviewed labor signs: regular contractions, pelvic pressure, back pain, bleeding, or fluid leakage. Instructed to seek immediate care for these symptoms. 6. Lifestyle and Delivery Preparation Reinforced vitamins, nutrition, and safe activity. Discussed plan, pain management, and . Advised on labor preparation (e.g., hospital bag) and expectations. 7. Psychosocial Support Assessed emotional well-being and offered resources for mental health or parenting support.
[2025-05-01 10:23] VITALS: BP 114/75; PULSE 88; RESP 16; TEMP 36.5; O2SAT 95; BMI 33.3
== END 2025-05-01 11:22 | disposition home or self-care (01) ==
LOC: HODSOBC 10:07
PROVIDERS: Supervising Provider Obstetrics & Gynecology; Visit Provider Obstetrics & Gynecology
DX: O09.893 Supervision of other high risk pregnancies, third trimester (principal); O26.843 Uterine size-date discrepancy, third trimester; Z3A.35 35 weeks gestation of pregnancy; Z88.8 Allergy status to other drugs, medicaments and biological substances; Z91.048 Other nonmedicinal substance allergy status
CPT/HCPCS: 99214; G0463

== ENCOUNTER 2025-05-06 10:01 | Outpatient (AMB) | payer MEDICAID, SELFPAY ==
[2025-05-06 10:28] VITALS: BP 110/72; PULSE 78; RESP 17; TEMP 36.7; O2SAT 98; BMI 33.3
--- NOTE | 2025-05-06 10:28 | OBCLNT_ITS ---
Vital Signs 05/06/25 10:28 Height 1.68 m Height Method Stated Weight 93.95 kg Weight Measurement Method Standing Scale BMI 33.3 BP 110/72 Blood Pressure Source Automatic Cuff Blood Pressure Location Right Upper Arm Position Sitting Respiration 17 Pulse 78 Pulse Source Monitor Temp 98.0 F Temp Source Temporal Artery Scan Pulse Oximetry (%) 98 Oxygen Delivery Method Room Air Allergies/Home Meds Allergies & Medications Allergies adhesive tape Allergy (Intermediate, Verified 05/06/25 10:29) Hives succinylcholine Allergy (Verified 05/06/25 10:29) Medication Reconciliation doxylamine 10 mg-pyridoxine (vit B6) 10 mg tablet,delayed release (Diclegis) 1 tab PO BID 30 days #60 tabs 02/10/25 [Rx Confirmed 05/06/25] omeprazole 40 mg capsule,delayed release 40 mg PO QDAY 30 days #30 caps 03/23/25 [Rx Confirmed 05/06/25] Intake Visit Data Collection New Patient or Established: Established Patient (seen at [facility] within 3 years) Reason for Visit:: OBC Seen by Clinical Staff ONLY (RN/MA): No Hand Laster Required: No Do You Feel Safe at Home: Yes Authorities Contacted: N/A PCP or OBGYN visit in last 3 months: Yes Date of Last PCP or OBGYN visit: 05/01/25 Hx Now: Yes Are you currently on any form of Control: No Pain Present Currently: No Pain Scale Used: Andrade-Brice/Numerical Pain scale:: 0 Smoking Status Smoking Status: Never smoker Questionnaires Covid-19 Vaccine Questionnaire Has patient been vacinated for Covid-19 Have you been vacinated for Covid-19: No PHQ-9 PHQ-2 Over the last 2 weeks, how often have you been bothered by any of the following problems? 1. Little interest or pleasure in doing things: not at all 2. Feeling down, depressed, or hopeless: not at all Total score: 0 PHQ-9 3. Trouble falling or staying asleep, or sleeping too much: Not at all 4. Feeling tired or having little energy: Not at all 5. Poor appetite or overeating: Not at all 6. Feeling bad about yourself - or that you are a failure or have let yourself or your family down: Not at all 7. Trouble concentrating on things, such as reading the newspaper or watching television: Not at all 8. Moving or speaking so slowly that other people could have noticed? - Or the opposite - being so fidgety or restless that you have been moving around a lot more than usual: not at all 9. Thoughts that you would be better off or of hurting yourself in some way: Not at all Total score: 0 If you checked off any problems, how difficult have these problems made it for you to do your work, take care of things at home, or get along with other people?: not difficult at all Source: Developed by Drs. Jan Mcdonnell, Joyce Salas, Luis M Beltran and colleagues, with an educational shahrzad from [employer]. 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: Past Medical History Past Medical History: No Hx Neurological Disorders, No Hx Hypothyroidism, No Hx Hyperthyroidism, No Hx Breast Cancer, No Hx Cardiac Disorders, No Hx Cancer, No Hx Blood Disorders, No Hx Anemia, No Hx Gastrointestinal Disorders, No Hx Renal Disease, No Hx Diabetes Mellitus Type 1, No Hx Diabetes Mellitus Type 2 and No Hx Polycystic Ovarian Syndrome Care OB Visit Log OB Flowsheet Initial Weight: Not Recorded Date -?-?-?-?-?-?-?-?-?-?-?-?- EGA Weight BP Alb Glu CTX Pres Fundal ht FHR Mov Dilation Station Effacement Hx Notes Visit Note 02/10/25 -?-?-?-?-?-?-?-?-?-?-?-?- 24w 2d 89.584 kg 113/75 No CTX/LOF/VB. Reports good FM. No SUN/VS, Epig/RUQ pain. Primary concern: severe left-sided sciat ica, worsened by prolonged standing. No relief with stretching or heat. Has not yet felt movement. FHR: 146?147 bpm. Assessment & Plan: 24w with left-sided sciatica. heart rate reassuring. Resubmit referral for ultrasound at [facility] 24w glucose test for GDM screening Offer workplace accommodation note: 10-min break every 2 hrs Option to call out during severe episode s Follow up in 4 weeks Reviewed labor signs and care counseling 03/03/25 -?-?-?-?-?-?-?-?-?-?-?-?- 27w 2d 90.945 kg 125/79 28 active at 27 weeks and 2 days gestation, presents for routine care. Reports ongoing left-sided sciatica, previously addressed with work accommodation, and nocturnal acid reflux affecting sleep. Notes good FM+, especially at night. Denies contractions or cramping. Glucose tolerance test and A1c both normal. FHT 158 bpm. Plan: Routine follow-up in 2 weeks Transition to weekly visits after 34 wee ks Tdap planned for 32 weeks Growth US scheduled for 03/31 at [facility] Continue work accommodations for sciatic a Recommend omeprazole for GERD, avoid kaushal d 2 hrs before bed Stop ondansetron for reflux, reassess sy mptoms next visit 03/17/25 -?-?-?-?-?-?-?-?-?-?-?-?- 29w 2d 92.703 kg 109/79 at 29w2d, presents for routine visit. Reports good FM, no CTX/LOF/VB. Denies SUN, VC, or epigastric pain. Reflux symptoms persist; omeprazole not started due to pharmacy/insurance issues. Minimizing Zofran use as previously advised. Still working but experiencing d iscomfort; considering timing for maternity leave. FHR 162 bpm. Plan: Administer TDaP today. Draw CBC an d RPR labs. 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 Continue vitamins. Follow up in 2 weeks. Discussed possible work leave starting in 2?3 weeks or by end of March based on symptoms and HR consultation. Reviewed movement monitoring, signs of labor, and preeclampsia precautions. 03/23/25 -?-?-?-?-?-?-?-?-?-?-?-?- 30w 1d 92.079 kg 116/75 @ 30w1d with hx of prior molar , presenting for disability documentation. Reports ongoing nausea refractory to Zofran, now using Phenergan and omeprazole. Nausea persists despite meds; Zofran discontinued due to inefficacy and side effects. Also reports work-related sciatic pain. Denies CTX/LOF/VB, reports good FM. BP 148/normal. Plan: Disability leave approved starting today; [facility] forms completed. Continue Phenergan and increase omeprazole as needed. 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 Reviewed non-pharmacologic strategies. Encourage gentle activity as tolerated for sciatic pain, avoid prolonged standing. Educated on signs of preeclampsia; instructed to present to hospital if symptoms arise. Follow up as needed. 03/31/25 -?-?-?-?-?-?-?-?-?-?-?-?- 31w 2d 91.852 kg 115/75 at 31w2d, history of complete mole, presents for routine care. Reports improved energy after stopping work. Ongoing sciatica attributed to gravid uterine pressure. No CTX/LOF/VB, reports good FM. Denies SUN/VC/epigastric pain. BP now WNL after mild elevation at last visit. MFM US today: EFW 1715g ([id number]), anatomy survey normal. Plan: Follow up in 2 weeks. Clinician to complete requested forms by tomorrow; staff will notify patient. Reviewed FM precautions, signs, and third- trimester care. Continue vitamins, safe activity, and delivery prep. 04/14/25 -?-?-?-?-?-?-?-?-?-?-?-?- 33w 2d 92.306 kg 117/78 absent 32 137 ac tive No CTX/LOF/VB, reports good FM. FHR 137. Complains of sciatica. Labs show mild anemia (Hgb 11.2). FU in 3 wks for 36w visit and GBS swab. Continue routine care. 05/01/25 -?-?-?-?-?-?-?-?-?-?-?-?- 35w 5d 94.064 kg 114/75 occasional unknown 35 145 active at 35w4d with pelvic pressure, no CTX/LOF/VB, FM+, FHR 159. Plan: Sono in 1?2wks for EFW, hospital registration, weekly visits starting next week with booking police officer Maria A, f/u with Dr. Dominguez in 2wks. 05/06/25 -?-?-?-?-?-?-?-?-?-?-?-?- 36w 3d 93.95 kg 110/72 occasional cephalic 36 136 active no cx/lof/VB. Reports good movement. Complains of pressure. No other complaints. Discussed negative GBS. Discussed labor precautions and kick counts twice a d ay. Growth sono is still pending. Return in a week for ALEJANDRINA Calculator Estimated Delivery Date Method Current WG Current Estimate 05/31/25 Ultrasound #1 36w 3d Notes Visit Date: 05/06/25 Last Updated by: Maria A Hennessy CNM 05/06: gbs- Visit Date: 03/03/25 Last Updated by: Cm Dominguez MD Test Office Procedures OB Clinic LOC & Office Proc's Nursing/Assessment Patient Status: Established Patient OB Clinic Nursing Assessment: Medication Reconciliation, Update PMH in EMR and Vital Signs OB Clinic Coordination of Care: Complex Care and Chronic Disease 1-5, Consent,records obtained, informed consent, Education Simp Pt/Fam, Results/Orders obtained and Staff clarify orders Special Needs: Heart tones Established Patient Charge Established Patient Point Assignment: 120 Established Patient Point Charge: EP Level 4 (120-155) Assessment & Plan Diagnosis / Problem List (1) Supervision of high risk , unspecified, third trimester: Status: Acute Plan Discussed GBS. Discussed labor precautions and kick count twice a day. Comfort measures for early labor. Growth sono still pending. Return in a week with OB Additional Plan Follow Up: 1 Week (obc)
== END 2025-05-06 10:52 | disposition home or self-care (01) ==
LOC: HODSOBC 10:01
PROVIDERS: Supervising Provider Advanced Practice Midwife; Visit Provider Advanced Practice Midwife
DX: O09.93 Supervision of high risk pregnancy, unspecified, third trimester (principal); Z3A.36 36 weeks gestation of pregnancy; Z91.048 Other nonmedicinal substance allergy status; Z88.8 Allergy status to other drugs, medicaments and biological substances
CPT/HCPCS: 99214; G0463

== ENCOUNTER 2025-05-15 11:24 | Outpatient (AMB) | payer MEDICAID, SELFPAY ==
[2025-05-15 11:33] VITALS: BP 113/78; PULSE 95; RESP 17; TEMP 36.4; O2SAT 98; BMI 33.3
--- NOTE | 2025-05-15 11:33 | AMB.OBVISIT ---
Vital Signs 05/15/25 11:33 Height 1.68 m Height Method Measured Weight 94.12 kg Weight Measurement Method Standing Scale BMI 33.3 BP 113/78 Blood Pressure Source Automatic Cuff Blood Pressure Location Right Upper Arm Position Sitting Respiration 17 Pulse 95 Pulse Source Monitor Temp 97.6 F Temp Source Temporal Artery Scan Pulse Oximetry (%) 98 Oxygen Delivery Method Room Air Allergies/Home Meds Allergies & Medications Allergies adhesive tape Allergy (Intermediate, Verified 06/16/25 14:34) Hives succinylcholine Allergy (Verified 06/16/25 14:34) watermelon Allergy (Verified 06/16/25 14:34) Medication Reconciliation vit no.95-ferrous fumarate 28 mg-folic acid 800 mcg tablet () 1 tab PO QDAY 05/16/25 [History Confirmed 05/17/25] ibuprofen 600 mg tablet 600 mg PO Q6H PRN pain #30 tabs 05/18/25 [Rx] Intake Visit Data Collection New Patient or Established: Established Patient (seen at [facility] within 3 years) Reason for Visit:: OBC Consent obtained for Telemed Visit: No Seen by Clinical Staff ONLY (RN/MA): 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 1. Little interest or pleasure in doing things: not at all PHQ-9 8. Moving or speaking so slowly that other people could have noticed? - Or the opposite - being so fidgety or restless that you have been moving around a lot more than usual: not at all Source: Developed by Drs. Jan Mcdonnell, Joyce Salas, Luis M Beltran and colleagues, with an educational shahrzad from [employer]. 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: Past Medical History Past Medical History: No Hx Neurological Disorders, No Hx Hypothyroidism, No Hx Hyperthyroidism, No Hx Breast Cancer, No Hx Cardiac Disorders, No Hx Cancer, No Hx Blood Disorders, No Hx Anemia, No Hx Gastrointestinal Disorders, No Hx Renal Disease, No Hx Diabetes Mellitus Type 1, No Hx Diabetes Mellitus Type 2 and No Hx Polycystic Ovarian Syndrome Care OB Visit Log OB Flowsheet Initial Weight: Not Recorded Date <del>?</del> EGA Weight BP Alb Glu CTX Pres Fundal ht FHR Mov Dilation Station Effacement Hx Notes Visit Note 02/10/25 <del>?</del> 24w 2d 89.584 kg 113/75 No CTX/LOF/VB. Reports good FM. No SUN/VS, Epig/RUQ pain. Primary concern: severe left-sided sciatica, worsened by prolonged standing. No relief with stretching or heat. Has not yet felt movement. FHR: 146?147 bpm. Assessment & Plan: 24w with left-sided sciatica. heart rate reassuring. Resubmit referral for ultrasound at [facility] Order 24w glucose test for GDM screening Offer workplace accommodation note: 10-min break every 2 hrs Option to call out during severe episodes Follow up in 4 weeks Reviewed labor signs and care counseling 03/03/25 <del>?</del> 27w 2d 90.945 kg 125/79 28 active at 27 weeks and 2 days gestation, presents for routine care. Reports ongoing left-sided sciatica, previously addressed with work accommodation, and nocturnal acid reflux affecting sleep. Notes good FM+, especially at night. Denies contractions or cramping. Glucose tolerance test and A1c both normal. FHT 158 bpm. Plan: Routine follow-up in 2 weeks Transition to weekly visits after 34 weeks Tdap planned for 32 weeks Growth US scheduled for 03/31 at [facility] Continue work accommodations for sciatica Recommend omeprazole for GERD, avoid food 2 hrs before bed Stop ondansetron for reflux, reassess symptoms next visit 03/17/25 <del>?</del> 29w 2d 92.703 kg 109/79 at 29w2d, presents for routine visit. Reports good FM, no CTX/LOF/VB. Denies SUN, VC, or epigastric pain. Reflux symptoms persist; omeprazole not started due to pharmacy/insurance issues. Minimizing Zofran use as previously advised. Still working but experiencing discomfort; considering timing for maternity leave. FHR 162 bpm. Plan: Administer TDaP today. Draw CBC and RPR labs. 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 Continue vitamins. Follow up in 2 weeks. Discussed possible work leave starting in 2?3 weeks or by end of March based on symptoms and HR consultation. Reviewed movement monitoring, signs of labor, and preeclampsia precautions. 03/23/25 <del>?</del> 30w 1d 92.079 kg 116/75 @ 30w1d with hx of prior molar , presenting for disability documentation. Reports ongoing nausea refractory to Zofran, now using Phenergan and omeprazole. Nausea persists despite meds; Zofran discontinued due to inefficacy and side effects. Also reports work-related sciatic pain. Denies CTX/LOF/VB, reports good FM. BP 148/normal. Plan: Disability leave approved starting today; [place] forms completed. Continue Phenergan and increase omeprazole as needed. 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 Reviewed non-pharmacologic strategies. Encourage gentle activity as tolerated for sciatic pain, avoid prolonged standing. Educated on signs of preeclampsia; instructed to present to hospital if symptoms arise. Follow up as needed. 03/31/25 <del>?</del> 31w 2d 91.852 kg 115/75 at 31w2d, history of complete mole, presents for routine care. Reports improved energy after stopping work. Ongoing sciatica attributed to gravid uterine pressure. No CTX/LOF/VB, reports good FM. Denies SUN/VC/epigastric pain. BP now WNL after mild elevation at last visit. MFM US today: EFW 1715g (0bi77mg), anatomy survey normal. Plan: Follow up in 2 weeks. Clinician to complete requested forms by tomorrow; staff will notify patient. Reviewed FM precautions, signs, and third-trimester care. Continue vitamins, safe activity, and delivery prep. 04/14/25 <del>?</del> 33w 2d 92.306 kg 117/78 absent 32 137 active No CTX/LOF/VB, reports good FM. FHR 137. Complains of sciatica. Labs show mild anemia (Hgb 11.2). FU in 3 wks for 36w visit and GBS swab. Continue routine care. 05/01/25 <del>?</del> 35w 5d 94.064 kg 114/75 occasional unknown 35 145 active at 35w4d with pelvic pressure, no CTX/LOF/VB, FM+, FHR 159. 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 Dominguez in 2wks. 05/06/25 <del>?</del> 36w 3d 93.95 kg 110/72 occasional cephalic 36 136 active no cx/lof/VB. Reports good movement. Complains of pressure. No other complaints. Discussed negative GBS. Discussed labor precautions and kick counts twice a day. Growth sono is still pending. Return in a week for 05/15/25 <del>?</del> 37w 5d 94.12 kg 113/78 occasional cephalic 38 145 active - Group B strep test is negative. - Patient reports: - No contractions - Active movement - No leaking of fluid - No vaginal bleeding - movement: - Patient notes decreased strength of movements - Can feel movement when sitting - Concerned about perceived decrease in movement strength - No other symptoms or concerns reported - Next appointment scheduled at 39 weeks for cervical check and membrane sweep - Ultrasound to be performed upon admission for labor to determine exact weight - Patient advised to have a hospital bag ready as delivery could occur anytime - Patient instructed to monitor movements hourly - Patient advised to come to 4th floor for monitoring if concerned about movements ALEJANDRINA Calculator Estimated Delivery Date Method Current WG Current Estimate 05/31/25 Ultrasound #1 43w 0d Notes Visit Date: 05/06/25 Last Updated by: Maria A Hennessy CNM 05/06: gbs- Visit Date: 03/03/25 Last Updated by: Cm Dominguez MD Test Office Procedures OB Clinic LOC & Office Proc's Nursing/Assessment Patient Status: Established Patient OB Clinic Nursing Assessment: Medication Reconciliation, Update PMH in EMR and Vital Signs OB Clinic Coordination of Care: Complex Care and Chronic Disease 1-5, Consent,records obtained, informed consent, Education Simp Pt/Fam and Results/Orders obtained Special Needs: Heart tones Established Patient Charge Established Patient Point Assignment: 110 Established Patient Point Charge: EP Level 3 (80-115) Assessment & Plan Diagnosis / Problem List (1) Supervision of high risk , unspecified, third trimester: Status: Acute
== END 2025-05-15 11:55 | disposition home or self-care (01) ==
LOC: HODSOBC 11:24
PROVIDERS: Supervising Provider Obstetrics & Gynecology; Visit Provider Obstetrics & Gynecology
DX: O09.893 Supervision of other high risk pregnancies, third trimester (principal); O36.8130 Decreased fetal movements, third trimester, not applicable or unspecified; Z3A.37 37 weeks gestation of pregnancy; Z88.8 Allergy status to other drugs, medicaments and biological substances; Z91.018 Allergy to other foods; Z91.048 Other nonmedicinal substance allergy status
CPT/HCPCS: 99213; G0463

== ENCOUNTER 2025-05-16 20:05 | Observation (INO) | payer MEDICAID, SELFPAY ==
[2025-05-16 20:13] VITALS: BP 118/97; PULSE 59
[2025-05-16 20:15] VITALS: BP 113/92; PULSE 96; RESP 100; RESP 18; TEMP 36.6; BMI 34.0
[2025-05-16 20:21] VITALS: BP 113/92; PULSE 96
[2025-05-16 21:39] VITALS: BP 120/75; PULSE 81
== END 2025-05-16 22:40 | disposition home or self-care (01) ==
PROVIDERS: Admitting Provider Obstetrics & Gynecology; Visit Provider Obstetrics & Gynecology
DX: O47.1 False labor at or after 37 completed weeks of gestation (principal); Z3A.37 37 weeks gestation of pregnancy
CPT/HCPCS: 59025; 59899

== ENCOUNTER 2025-05-17 06:20 | Inpatient (IN) | payer BC, MEDICAID, SELFPAY ==
[2025-05-17] VITALS (152 sets, daily range): BP systolic 99–164; BP diastolic 57–103; PULSE 62–172; RESP 14–100; TEMP 36.6–37; O2SAT 89–99; BMI 34.0; BMI 33.9
[2025-05-17] MEDS: RINGERS LACTATED 1000 ML 1,000 ML 100 ML IV (08:20)
[2025-05-17 08:33] LABS: Basophils # (Auto) 0.0 Thou/mm3 (0.0-0.2); Basophils % (Auto) 0 % (0-2.5); Eosinophils # (Auto) 0.0 Thou/mm3 (0.0-0.5); Eosinophils % (Auto) 0 % (0-10); Hematocrit 36.4 % (36.0-46.0); Hemoglobin 12.5 g/dL (12.0-16.0); Immature Granulocytes Auto 0.06 Thou/mm3 (0.00-0.00); Lymphocytes # (Auto) 1.4 Thou/mm3 (1.0-4.8); Lymphocytes % (Auto) 9 % (10-50); Mean Corpuscular HGB Conc 34.3 g/dl (31.0-37.0); Mean Corpuscular Hemoglobin 30.7 pg (25.0-35.0); Mean Corpuscular Volume 89 fL (80-100); Monocytes # (Auto) 0.7 Thou/mm3 (0.0-0.8); Monocytes % (Auto) 5 % (0-12); Neutrophils # (Auto) 13.3 Thou/mm3 (1.8-7.7); Neutrophils % (Auto) 86 % (37-80); Nucleated Red Blood Cell # 0.00 Thou/mm3 (0.00-0.00); Nucleated Red Blood Cell % 0 /100 WBC (0); Platelet Count 294 Thou/mm3 (140-440); RDW Standard Deviation 43.1 fL (36.4-46.3); Red Blood Count 4.07 Miln/mm3 (4.00-5.20); White Blood Count 15.5 Thou/mm3 (3.6-11.0)
[2025-05-17] MEDS: fentaNYL CIT INJ 50 mCg/ML AMP 2ML 100 MCG IV (08:40)
[2025-05-17 09:20] LABS: Syphilis Nonreactive (Nonreactive)
[2025-05-17] MEDS: OXYTOCIN in NS 30 units 30 UNIT/500 ML BAG IV (10:21)
[2025-05-17] MEDS: RINGERS LACTATED 1000 ML 1,000 ML 999 ML IV ×2 (12:29→12:44)
[2025-05-17] MEDS: MINERAL OIL 30 ML UDC TOP (18:00)
[2025-05-17] MEDS: OXYTOCIN in NS 20 units 20 UNIT/1,000 ML BAG 999 UNIT IV (18:03)
--- NOTE | 2025-05-17 18:20 | PD.LDDELS ---
Data (Michele) Data Hx Section: No : 2 Term: 0 : 0 Livin Abortions: Spontaneous & Theraputic: 0 Delivery Data (Michele) Labor Data ROM date: 05/17/25 ROM time: 14:16 Amniotic membrane rupture type: Artificial Amniotic fluid description: Clear Delivery Data Delivered by: Cm Dominguez
--- NOTE | 2025-05-17 18:21 | PD.LDHP ---
Documentation for date of: 05/17/25 OB Labor/Induct. HPI History of Present Illness Chief complaint: Contractions : 2 Para: 0 Term pregnancies: 0 pregnancies: 0 Living children: 0 History of Abortions: Spontaneous and Elective: 0 History of Vaginal deliveries: 0 History of sections: No History of : No Date of last menstrual period: 08/03/24 ALEJANDRINA: 05/31/25 Gestational age based on last menstrual period: 39 History of present illness: 19-year-old 2 para 0-0-1-0 at 38 weeks presented to labor and delivery triage with contractions. Patient was previously seen here last night where she was 1 cm dilated. On exam today she is dilated to 3 cm with complete effacement of cervix and 0 station. Patient denies any leakage of fluid or vaginal bleeding and reports adequate movements. She reports contractions every 2 to 5 minutes. History of Present Adequate Care: Yes Labs Labs: Positive: Rubella Titre, Negative: RPR, Hepatitis B, HIV, Chlamydia, Gonorrhea and Group Beta Strep and Unknown: Herpes Type 1, Herpes Type 2 and Covid-19 Review of Systems Review of Systems Narrative Review of Systems: Review of system reviewed and within normal limits except mentioned in HPI Past Medical History Surgical History SURGICAL: Negative Section Meds Home Medications and Allergies Home Medications ?Medication ?Instructions ?Recorded ?Confirmed ?Type vit no.95-ferrous 1 tab PO QDAY 05/16/25 05/17/25 History fumarate 28 mg-folic acid 800 mcg tablet () Allergies Allergy/AdvReac Type Severity Reaction Status Date / Time adhesive tape Allergy Intermediate Hives Verified 05/17/25 09:26 succinylcholine Allergy Verified 05/17/25 09:26 watermelon Allergy Verified 05/17/25 09:26 OB Exam Physical Exam Vital signs: Temp Pulse Resp BP Pulse Ox 98.3 F 96 16 116/75 99 05/17/25 15:45 05/17/25 18:12 05/17/25 15:45 05/17/25 18:12 05/17/25 18:04 Constitutional Constitutional: no acute distress Routine HEENT Exam Head: Present normocephalic and atraumatic Eye: Present EOMI and PERRL ENT: Present mucous membranes moist Routine Neck Exam Neck: Present supple and trachea midline Routine Cardiovascular Exam Cardiovascular: Present RRR Routine Abdominal Exam Abdominal: Present soft and normoactive bowel sounds Detailed Labor and Delivery Exam Dilation (cm): 3 Effacement (%): 100 Cervix position: mid station: -2 Consistency: soft Presentation: Vertex Baseline heart rate: 145 monitor accelerations: 15x15 monitor decelerations: None Contraction frequency (min): 3-5 Routine Extremities Exam Extremities: Present full ROM Routine Skin Exam Skin: Present intact, dry and warm Routine Neurological Exam Neurological: Present alert, oriented X3 and CN II-XII intact Routine Psychiatric Exam Psychiatric: Present normal affect and normal thought process OB Results Labs 05/17/25 08:28 Labs: Short CBC 05/17/25 Range/Units 08:28 WBC 15.5 H (3.6-11.0) Thou/mm3 Hgb 12.5 (12.0-16.0) g/dL Hct 36.4 (36.0-46.0) % Plt Count 294 (140-440) Thou/mm3 OB Assessment & Plan Assessment and Plan (1) Supervision of high risk , unspecified, third trimester: Status: Acute Assessment and plan: Admit to inpatient status GBS negative Epidural whenever desired Oxytocin augmentation as needed Continuous maternal monitoring, anticipate vaginal delivery (2) Active labor at term: Status: Acute
[2025-05-17] MEDS: TRANEXAMIC ACID 1,000 MG IVPB 1,000 MG/100 ML BAG 200 MG IV (18:37)
[2025-05-18 00:02] VITALS: BP 115/71; PULSE 100; RESP 14; TEMP 36.8; O2SAT 97
[2025-05-18 03:50] VITALS: BP 101/66; PULSE 83; RESP 16; TEMP 36.8; O2SAT 98
--- NOTE | 2025-05-18 07:17 | ESDS_ITS ---
DS: Providers Provider Date of admission: 05/17/25 07:57 Primary care physician: Physician No Primary/Family Admitting Provider: Cm Dominguez MD Attending Provider on Admission: Ulises Kuhn MD Consults: 05/17/25 19:01 Referral Routine Comment: Attending Provider on DC: Ulises Kuhn MD Discharging Provider: Ulises Kuhn MD DS: Diagnosis Problem List Completed Was Problem List Reviewed/Reconciled?: Yes Summary/Hosp Course Brief History: 19-year-old 2 para 0-0-1-0 at 38 weeks presented to labor and delivery triage with contractions. Patient was previously seen here last night where she was 1 cm dilated. On exam today she is dilated to 3 cm with complete effacement of cervix and 0 station. Patient denies any leakage of fluid or vaginal bleeding and reports adequate movements. She reports contractions every 2 to 5 minutes. Peripartum Data Delivery Method: Normal Vaginal Delivery Episiotomy Description: None Time Spent with Patient Time attestation: Total time spent providing and/or coordinating discharge services: Exam Vital Signs Temp Pulse Resp BP Pulse Ox O2 Del Method 98.3 F 83 16 101/66 98 Room Air 05/18/25 03:50 05/18/25 03:50 05/18/25 03:50 05/18/25 03:50 05/18/25 03:50 05/18/25 03:50 Discharge Plan Prescriptions/Referrals Prescriptions/Med Rec: No Action PNV no.95-ferrous fumarate-FA [] 28 mg iron- 800 mcg tablet 1 tab PO QDAY Referrals: No Primary/Family,Physician [Primary Care Provider] - Patient/Caregiver Discharge Instructions Print Language: Greenlandic Planned Discharge Date 05/18/25
--- NOTE | 2025-05-18 07:18 | ESPR_ITS ---
Subjective Subjective Interval history: Patient denies any primary complaints Exam Vital Signs Temp Pulse Resp BP Pulse Ox O2 Del Method 98.3 F 83 16 101/66 98 Room Air 05/18/25 03:50 05/18/25 03:50 05/18/25 03:50 05/18/25 03:50 05/18/25 03:50 05/18/25 03:50 Routine Respiratory Exam Comments: Clear to auscultation bilaterally Routine Cardiovascular Exam Comments: Regular rate and rhythm Routine Abdominal Exam Comments: Fundus is firm nontender Routine Extremities Exam Comments: Nontender Objective Labs 05/17/25 08:28 Labs: Laboratory Results - last 24 hr 05/17/25 08:28 WBC 15.5 H RBC 4.07 Hgb 12.5 Hct 36.4 MCV 89 MCH 30.7 MCHC 34.3 RDW Std Deviation 43.1 Plt Count 294 Neut % (Auto) 86 H Lymph % (Auto) 9 L [place] % (Auto) 5 Eos % (Auto) 0 Baso % (Auto) 0 Neut # (Auto) 13.3 H Lymph # (Auto) 1.4 [place] # (Auto) 0.7 Eos # (Auto) 0.0 Baso # (Auto) 0.0 Immature Gran # (Auto) 0.06 H Absolute Nucleated RBC 0.00 Immature Gran % 0 Nucleated RBC % 0 Syphilis Serology Nonreactive Blood Type O Positive Antibody Screen NEGATIVE Blood Bank Wristband ID Yes Impressions Impression: day #1 status post vaginal delivery consult Encourage ambulation care Discharge home when baby is cleared Assessment & Plan Problem List (1) Supervision of high risk , unspecified, third trimester: Status: Acute (2) Active labor at term: Status: Acute Time Spent With Patient Time: Total time spent is greater than 50% in coordination of care (as documented) at patient's floor/unit and/or counseling patient:
[2025-05-18 08:00] VITALS: BP 120/78; PULSE 92; RESP 18; TEMP 36.9; O2SAT 97
[2025-05-18 08:27] LABS: Basophils # (Auto) 0.0 Thou/mm3 (0.0-0.2); Basophils % (Auto) 0 % (0-2.5); Eosinophils # (Auto) 0.1 Thou/mm3 (0.0-0.5); Eosinophils % (Auto) 1 % (0-10); Hematocrit 31.2 % (36.0-46.0); Hemoglobin 10.6 g/dL (12.0-16.0); Immature Granulocytes Auto 0.05 Thou/mm3 (0.00-0.00); Lymphocytes # (Auto) 2.1 Thou/mm3 (1.0-4.8); Lymphocytes % (Auto) 14 % (10-50); Mean Corpuscular HGB Conc 34.0 g/dl (31.0-37.0); Mean Corpuscular Hemoglobin 31.2 pg (25.0-35.0); Mean Corpuscular Volume 92 fL (80-100); Monocytes # (Auto) 1.0 Thou/mm3 (0.0-0.8); Monocytes % (Auto) 7 % (0-12); Neutrophils # (Auto) 11.8 Thou/mm3 (1.8-7.7); Neutrophils % (Auto) 78 % (37-80); Nucleated Red Blood Cell # 0.00 Thou/mm3 (0.00-0.00); Nucleated Red Blood Cell % 0 /100 WBC (0); Platelet Count 260 Thou/mm3 (140-440); RDW Standard Deviation 45.1 fL (36.4-46.3); Red Blood Count 3.40 Miln/mm3 (4.00-5.20); White Blood Count 15.2 Thou/mm3 (3.6-11.0)
[2025-05-18] MEDS: DOCUSATE SOD 100 MG CAPSULE PO (09:13)
[2025-05-18] MEDS: IBUPROFEN TAB 400 MG TABLET 800 MG PO (11:54)
[2025-05-18 12:00] VITALS: BP 120/78; PULSE 90; RESP 18; TEMP 36.8; O2SAT 97
[2025-05-18 15:59] VITALS: BP 98/66; PULSE 76; RESP 18; TEMP 36.6; O2SAT 97
== END 2025-05-18 19:10 | disposition home or self-care (01) | DRG 807 ==
LOC: S4SX 08:42 → S4NX 20:21
PROVIDERS: Admitting Provider Obstetrics & Gynecology; Visit Provider Specialist
DX: O80 Encounter for full-term uncomplicated delivery (principal); Z37.0 Single live birth; Z3A.38 38 weeks gestation of pregnancy
CPT/HCPCS: 36415; 85025; 86780; 86850; 86900; 86901; J2590; J2795; J3010; J3490; J7120; A9270

== ENCOUNTER 2025-06-16 14:22 | Outpatient (AMB) | payer MEDICAID, SELFPAY ==
[2025-06-16 14:33] VITALS: BP 116/78; PULSE 96; RESP 16; TEMP 36.2; O2SAT 98
--- NOTE | 2025-06-16 14:33 | AMBOBPPN_ITS ---
Vital Signs 06/16/25 14:33 Weight 85.502 kg Weight Measurement Method Standing Scale BP 116/78 Blood Pressure Source Automatic Cuff Blood Pressure Location Left Upper Arm Position Sitting Respiration 16 Pulse 96 Pulse Source Monitor Temp 97.2 F Temp Source Oral Pulse Oximetry (%) 98 Oxygen Delivery Method Room Air Allergies/Home Meds Allergies & Medications Allergies adhesive tape Allergy (Intermediate, Verified 06/16/25 14:34) Hives succinylcholine Allergy (Verified 06/16/25 14:34) watermelon Allergy (Verified 06/16/25 14:34) Intake Visit Data Collection New Patient or Established: Established Patient (seen at [facility] within 3 years) Reason for Visit:: OBC Seen by Clinical Staff ONLY (RN/MA): No Farm General Manager Required: No Do You Feel Safe at Home: Yes Authorities Contacted: N/A PCP or OBGYN visit in last 3 months: Yes Date of Last PCP or OBGYN visit: 05/18/25 Hx Now: No Are you currently on any form of Control: No Pain Present Currently: No Pain Scale Used: Andrade-Brice/Numerical Pain scale:: 0 Smoking Status Smoking Status: Never smoker OCCUPATIONAL THER: Past Medical History Past Medical History: No Hx Neurological Disorders, No Hx Hypothyroidism, No Hx Hyperthyroidism, No Hx Breast Cancer, No Hx Cardiac Disorders, No Hx Cancer, No Hx Blood Disorders, No Hx Anemia, No Hx Gastrointestinal Disorders, No Hx Renal Disease, No Hx Diabetes Mellitus Type 1, No Hx Diabetes Mellitus Type 2 and No Hx Polycystic Ovarian Syndrome Questionnaires Covid-19 Vaccine Questionnaire Has patient been vacinated for Covid-19 Have you been vacinated for Covid-19: No Social History Living Situation History Lives With: Family Housing: House Tobacco History Smoking Status: Never smoker Second Hand Smoke Exposure: No Alcohol History Alcohol Intake: Never Domestic Abuse History Do You Feel Safe at Home: Yes EPDS - PP Depression Screening [place] Pospartum Depression Screen I have been able to laugh and see the funny side of things: (0) As much as I always could I have looked forward with enjoyment to things: (0) As much as I ever did I have blamed myself unnecessarily when things went wrong: (0) No, never I have been anxious or worried for no good reason: (0) No, not at all I have felt scared or panicky for no very good reason: (0) No, not at all Things have been getting on top of me: (0) No, I have been coping as well as ever I have been so unhappy that I have had difficulty sleeping: (0) No, not at all I have felt sad or miserable: (0) No, not at all I have been so unhappy that I have been crying: (0) No, never The thought of harming myself has occurred to me: (0) Never Total Score: EPDS Score: Referral is indicated for score of 9 or more, suicidal, or if provider believes patient is depressed regardless of score.: 0 EPDS completed yes Care OB Visit Log OB Flowsheet Initial Weight: Not Recorded Date -?-?-?-?-?-?-?-?-?-?-?-?- EGA Weight BP Alb Glu CTX Pres Fundal ht FHR Mov Dilation Station Effacement Hx Notes Visit Note 02/10/25 -?-?-?-?-?-?-?-?-?-?-?-?- 24w 2d 89.584 kg 113/75 No CTX/LOF/VB. Reports good FM. No SUN/VS, Epig/RUQ pain. Primary concern: severe left-sided sciat ica, worsened by prolonged standing. No relief with stretching or heat. Has not yet felt movement. FHR: 146?147 bpm. Assessment & Plan: 24w with left-sided sciatica. heart rate reassuring. Resubmit referral for ultrasound at [facility] 24w glucose test for GDM screening Offer workplace accommodation note: 10-min break every 2 hrs Option to call out during severe episode s Follow up in 4 weeks Reviewed labor signs and care counseling 03/03/25 -?-?-?-?-?-?--?-?-?-?-?-?- 27w 2d 90.945 kg 125/79 28 active at 27 weeks and 2 days gestation, presents for routine care. Reports ongoing left-sided sciatica, previously addressed with work accommodation, and nocturnal acid reflux affecting sleep. Notes good FM+, especially at night. Denies contractions or cramping. Glucose tolerance test and A1c both normal. FHT 158 bpm. Plan: Routine follow-up in 2 weeks Transition to weekly visits after 34 wemiguel woodall Tdap planned for 32 weeks Growth scheduled for 03/31 at [facility] Continue work accommodations for sciatic a Recommend omeprazole for GERD, avoid kaushal d 2 hrs before bed Stop ondansetron for reflux, reassess sy mptoms next visit 03/17/25 -?-?-?-?-?-?--?-?-?-?-?-?- 29w 2d 92.703 kg 109/79 at 29w2d, presents for routine visit. Reports good FM, no CTX/LOF/VB. Denies SUN, VC, or epigastric pain. Reflux symptoms persist; omeprazole not started due to pharmacy/insurance issues. Minimizing Zofran use as previously advised. Still working but experiencing discomfort; considering timing for maternity leave. FHR 162 bpm. Plan: Administer TDaP today. Draw CBC an d RPR labs. Patient advised to package pick up [facility] forms for completion. Continue vitamins. Follow up in 2 weeks. Discussed possible work leave starting in 2?3 weeks or by end of March based on symptoms and HR consultation. Reviewed movement monitoring, signs of labor, and preeclampsia precautions. 03/23/25 -?-?-?-?-?-?-?-?-?-?-?-?- 30w 1d 92.079 kg 116/75 @ 30w1d with hx of prior molar , presenting for disability documentation. Reports ongoing nausea refractory to Zofran, now using Phenergan and omeprazole. Nausea persists despite meds; Zofran discontinued due to inefficacy and side effects. Also reports work-related sciatic pain. Denies CTX/LOF/VB, reports good FM. BP 148/normal. Plan: Disability leave approved starting today; WIC forms completed. Continue Phenergan and increase omeprazole as needed. 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 Reviewed non-pharmacologic strategies. Encourage gentle activity as tolerated for sciatic pain, avoid prolonged standing. Educated on signs of preeclampsia; instructed to present to hospital if symptoms arise. Follow up as needed. 03/31/25 -?-?-?-?-?-?-?-?-?-?-?-?- 31w 2d 91.852 kg 115/75 at 31w2d, history of complete mole, presents for routine care. Reports improved energy after stopping work. Ongoing sciatica attributed to gravid uterine pressure. No CTX/LOF/VB, reports good FM. Denies SUN/VC/epigastric pain. BP now WNL after mild elevation at last visit. MFM US today: EFW 1715g ([id number]), anatomy survey normal. Plan: Follow up in 2 weeks. Clinician to complete requested forms by tomorrow; staff will notify patient. Reviewed FM precautions, signs, and third- trimester care. Continue vitamins, safe activity, and delivery prep. 04/14/25 -?-?-?-?-?-?-?-?-?-?-?-?- 33w 2d 92.306 kg 117/78 absent 32 137 ac tive No CTX/LOF/VB, reports good FM. FHR 137. Complains of sciatica. Labs show mild anemia (Hgb 11.2). FU in 3 wks for 36w visit and GBS swab. Continue routine care. 05/01/25 -?-?-?-?-?-?-?-?-?-?-?-?- 35w 5d 94.064 kg 114/75 occasional unknown 35 145 active at 35w4d with pelvic pressure, no CTX/LOF/VB, FM+, FHR 159. Plan: Sono in 1?2wks for EFW, hospital registration, weekly visits starting next week with pesticide control inspector Maria A f/u with Dr. Dominguez in 2wks. 05/06/25 -?-?-?-?-?-?-?-?-?-?-?-?- 36w 3d 93.95 kg 110/72 occasional cephalic 36 136 active no cx/lof/VB. Reports good movement. Complains of pressure. No other complaints. Discussed negative GBS. Discussed labor precautions and kick counts twice a day. Growth sono is still pending. Return in a week for ALEJANDRINA Calculator Estimated Delivery Date Method Current WG Current Estimate 05/31/25 Ultrasound #1 42w 3d Notes Visit Date: 05/06/25 Last Updated by: Maria A Hennessy CNM 05/06: gbs- Visit Date: 03/03/25 Last Updated by: Cm Dominguez MD Test HPI Interval History: Sonja aBker is a patient who delivered on June 17, 2025, presenting for follow-up. She reports that her bleeding has slowed down. The patient describes experiencing lochia, which she notes comes out intermittently and appears as dark-colored tissue. She is currently , which she mentions causes the lochia to occur in gushes. Sonja is not currently interested in control. She has not reported any specific issues or concerns at this time. Regarding her return to work, Sonja is considering extending her maternity leave. She has been given the standard 6 weeks of leave but is contemplating an additional month extension. She is and is currently on maternity leave. ROS: Genitourinary: Positive for bleeding (lochia). Negative except as stated above, limited to OCCUPATIONAL THER and pertinent complaints. Exam General General Appearance: alert, in no apparent distress and healthy appearing Head Head exam: atraumatic Neck Neck exam: Present normal inspection and trachea midline Chest Chest inspection: Present normal inspection and symmetric chest wall rise External exam: Present normal external exam; Absent tenderness Neuro Neurological exam: Present oriented X3 Psych Psychiatric exam: Present normal affect and normal mood Office Procedures OB Clinic LOC & Office Proc's Nursing/Assessment Patient Status: Established Patient OB Clinic Nursing Assessment: Medication Reconciliation, Update PMH in EMR and Vital Signs OB Clinic Coordination of Care: Education Complex Pt/Fam, Consent,records obtained, informed consent, Lab and Imaging orders, Results/Orders obtained and Staff clarify orders Special Needs: Heart tones Established Patient Charge Established Patient Point Assignment: 115 Established Patient Point Charge: EP Level 3 (80-115) Assessment & Plan Diagnosis / Problem List (1) Routine Follow-Up: Plan Care: - Patient is in the early period, having delivered on June 17, 2025. - Reports decreased vaginal bleeding, consistent with normal lochia progression. - Currently , which can affect the duration and pattern of lochia. - No immediate concerns or complications reported. Plan: - Continue to monitor lochia, expecting cessation by 6 weeks . - Anticipate return of regular menstrual cycle approximately 1 month after lochia cessation. - Encourage exclusive if desired, noting it may delay the return of menstruation. - Advise on proper nutrition, emphasizing a protein-rich balanced diet. - Recommend gradual return to normal activities, with no specific restrictions. - Extend maternity leave until July 26, 2025: ? Provide work note for extended leave ? Anticipate return to work on July 27, 2025 without restrictions - Follow up as needed, especially if any concerns arise. Contraception: - Patient declines contraception at this time. - Given recent delivery and current status, natural family planning methods may be in use. Plan: - No contraceptive measures initiated at this time per patient preference. - Educate on the possibility of ovulation resuming as early as 6 weeks . - Advise patient to return if contraceptive needs change. (FP) Tobacco Smoking Status: Never smoker
== END 2025-06-16 14:58 | disposition home or self-care (01) ==
PROVIDERS: Supervising Provider Obstetrics & Gynecology; Visit Provider Obstetrics & Gynecology
DX: Z39.2 Encounter for routine postpartum follow-up (principal); Z39.1 Encounter for care and examination of lactating mother
CPT/HCPCS: 99213; G0463